=== PATIENT | female | born 1965 | race Caucasian/White ===

== ENCOUNTER 2022-05-11 16:15 | Inpatient (IN) | payer MEDICAID, SELFPAY ==
[2022-05-11] VITALS (21 sets, daily range): BP systolic 126–184; BP diastolic 89–124; PULSE 120–154; RESP 16–32; TEMP 36.8–36.9; O2SAT 85–96; BMI 26.2
--- NOTE | 2022-05-11 16:29 | ECG_ITS ---
[facility] Test Date: 2022-05-11 Pat Name: Alonzo Goncalves Department: Room: Gender: Female Logistics Supervisor: : 1965 Requested By: Anam Bhatti Order Number: [id number] Micah MD: Mikey Rashid M.D. Measurements Intervals [place] Rate: 153 P: 32 [place]: 119 QRS: 24 QRSD: 102 T: 64 QT: 279 QTc: 446 Interpretive Statements SINUS TACHYCARDIA WITH SHORT [place] INTERVAL, POSSIBLE ATRIAL FLUTTER LEFT VENTRICULAR HYPERTROPHY AND ST-T CHANGE [VOLTAGE CRITERIA PLUS ST/T ABNORMALITY No previous ECG available for comparison Electronically Signed On 05-11-2022 18:30:04 CDT by Mikey Rashid M.D. [id number]
--- NOTE | 2022-05-11 16:37 | XRR_ITS ---
PROCEDURE INFORMATION: Exam: XR Chest Exam date and time: 05/11/2022 4:40 PM Age: 56 years old Clinical indication: Cough and dyspnea; Additional info: Dyspnea/cough TECHNIQUE: Imaging protocol: XR of the chest. Views: 1 view. COMPARISON: No relevant prior studies available. FINDINGS: Lungs: Right middle lobe and right lower lobe compressive atelectasis, underlying pneumonia cannot be ruled out. Pleural spaces: Moderate right and small left pleural effusion. Heart/Mediastinum: Cardiac silhouette is markedly enlarged. Mediastinal contours are unremarkable. Vasculature: Vascular calcifications in the aorta. Bones/joints: Unremarkable for age. XR/XR chest 1V portable [id number] IMPRESSION: 1. Right middle lobe and right lower lobe compressive atelectasis, underlying pneumonia cannot be ruled out. Recommend followup chest x-ray to ensure resolution. 2. Moderate right and small left pleural effusion. 3. Cardiac silhouette is markedly enlarged. 4. Incidental/nonacute findings are listed in the report.
--- NOTE | 2022-05-11 16:44 | CTR_ITS ---
PROCEDURE INFORMATION: Exam: CTA Chest With Contrast Exam date and time: 05/11/2022 5:06 PM Age: 56 years old Clinical indication: Shortness of breath and other: Leg swelling; Additional info: Dyspnea/tachycardia TECHNIQUE: Imaging protocol: Computed tomographic angiography of the chest with contrast. Sagittal and coronal reformatted images were created and reviewed. 3D rendering (Not supervised by radiologist): MIP and/or 3D reconstructed images were created by the technologist. Radiation optimization: All CT scans at this facility use at least one of these dose optimization techniques: automated exposure control; mA and/or kV adjustment per patient size (includes targeted exams where dose is matched to clinical indication); or iterative reconstruction. Contrast material: OMNI 300; Contrast volume: 75 ml; Contrast route: INTRAVENOUS (IV); COMPARISON: CR (CHEST, ) 05/11/2022 4:40 PM RADIATION DOSE METRICS: Total DLP (mGy-cm): 579.02 FINDINGS: Pulmonary arteries: No filling defects in the pulmonary arteries to suggest pulmonary embolism. Aorta: Mild atherosclerotic changes in the visualized arteries. No evidence for aortic aneurysm. Evaluation for aortic dissection is limited due to the phase of contrast-enhancement. Trachea: Tracheobronchial structures are patent. Lungs: Right middle lobe and right lower lobe compressive atelectasis, underlying pneumonia cannot be ruled out. Pleural spaces: Large right and small left pleural effusions. No pneumothorax. Heart: Marked enlargement of the heart. Mild atherosclerotic calcification in the coronary arteries. Esophagus: The esophagus is unremarkable. Mediastinal space: No mediastinal hematoma. No pneumomediastinum. Lymph nodes: No lymphadenopathy. Liver: The visualized liver is unremarkable. Pancreas: The visualized pancreas is unremarkable. No pancreatic ductal dilatation. Spleen: The visualized spleen is unremarkable. Adrenal glands: The right adrenal gland is unremarkable. The left adrenal gland is unremarkable. Kidneys and ureters: The visualized right and left kidneys are unremarkable. Bones/joints: Mild degenerative changes in the visualized spine. Soft tissues: No acute abnormality in the extrathoracic soft tissues. CT/CT angio chest PE protcl [id number] IMPRESSION: 1. Large right and small left pleural effusions. Right middle lobe and right lower lobe compressive atelectasis, underlying pneumonia cannot be ruled out. Recommend followup chest imaging to insure resolution of these findings. 2. No evidence for pulmonary embolism. 3. Severe cardiomegaly. 4. Incidental/nonacute findings are listed in the report.
--- NOTE | 2022-05-11 16:46 | USR_ITS ---
PROCEDURE INFORMATION: Exam: US Duplex Right Lower Extremity Veins, Limited Exam date and time: 05/11/2022 5:32 PM Age: 56 years old Clinical indication: Edema, localized; Lower extremity, right; Additional info: Leg edema TECHNIQUE: Imaging protocol: Real-time Duplex ultrasound of the Right Lower Extremity with 2-D robert scale, color Doppler flow and spectral waveform analysis with image documentation. Limited exam was focused on the right lower extremity veins. COMPARISON: No relevant prior studies available. FINDINGS: Right deep veins: Unremarkable. The common femoral, femoral, proximal profunda femoral, popliteal, peroneal, and posterior tibial veins are patent without thrombus. Normal Doppler waveforms. Normal compressibility and/or augmentation response. Right superficial veins: Unremarkable. Saphenofemoral junction is patent without thrombus. Soft tissues: Moderate subcutaneous edema in the right calf. US/[place] [id number] IMPRESSION: 1. No evidence for deep venous thrombosis. 2. Moderate subcutaneous edema in the right calf.
[2022-05-11 16:53] LABS: Basophils # 0.1 10^3/uL (0.0-0.1); Basophils % 0.8 %; Eosinophils # 0.1 10^3/uL (0.0-0.8); Eosinophils % 1.1 %; Hematocrit 43.1 % (37.0-47.0); Hemoglobin 15.2 g/dL (11.5-15.3); Lymphocytes # 3.2 10^3/uL (0.8-4.8); Lymphocytes % 38.5 %; Mean Corpuscular HGB Conc 35.3 g/dL (30.0-36.0); Mean Corpuscular Hemoglobin 35.3 pg (28.0-34.0); Mean Corpuscular Volume 100.2 fl (81-99); Mean Platelet Volume 10.5 fL (7.4-10.4); Monocytes # 0.7 10^3/uL (0.2-0.9); Monocytes % 8.5 %; Neutrophils # 4.29 10^3/uL (1.8-7.7); Nucleated Red Blood Cells % 0.2 %; Platelet Count 237 10^3/cmm (130-400); Red Cell Distribution Width 14.3 % (12.1-15.1); White Blood Count 8.4 10^3/uL (4.0-10.0)
[2022-05-11] MEDS: sodium chloride 0.9% 1,000 ML 999 ML IV (16:55)
[2022-05-11] MEDS: iohexol 300 mg/mL 100 mL Btl IV (17:07)
--- NOTE | 2022-05-11 17:15 | ED_ITS ---
HPI - SOB/Dyspnea General: Chief Complaint: Shortness of Breath/Dyspnea Stated Complaint: SOB, leg swelling Time Seen by Provider: 05/11/22 16:36 Source: patient Mode of arrival: ambulatory Limitations: no limitations History of Present Illness: HPI Narrative: 56-year-old female presents emergency room complaining of swelling in her legs and shortness of breath. Earlier this year she had COVID. She still feels like 7 difficult time getting over she has not had any chest pain. No fever sweats chills nausea vomiting or diarrhea. MD elicited complaint: shortness of breath and cough Onset (ago): week(s) Timing: constant Severity: severe Exacerbating factors: lying flat, exertion and coughing Relieving factors: oxygen, rest and upright position Associated symptoms: Reports chest congestion and cough; Deny abdominal pain, chest pain, diaphoresis, dizziness, extremity pain, fever(s), hemoptysis, lightheadedness, myalgias, nausea, orthopnea, palpitations, paresthesias, polydipsia, polyuria, rash, sense of impending doom, syncope or vomiting Treatment prior to arrival: oxygen Review of Systems Const: Denies: fever(s), chills or diaphoresis ENMT: Denies: throat pain, ear or mastoid pain, nasal discharge or nasal congestion Card: Denies: chest pain, palpitations, lightheadedness, syncope or orthopnea Resp: Reports: chest congestion; Denies: dyspnea, productive cough, non-productive cough or hemoptysis GI: Denies: abdominal pain, nausea or vomiting : Denies: flank pain, difficulty voiding, dysuria or urinary frequency Musc: Denies: neck pain, back pain or extremity pain Skin/Breast: Denies: rash or pruritus Neuro: Denies: dizziness Endo: Denies: polyuria or polydipsia PFSH ED PFSH: Medical History History of hypertension No significant past medical history Surgical History History of right knee surgery No significant past surgical history Family History Mother Lymphoma Father Hypertension Lung cancer Physical Exam Const: GENERAL APPEARANCE: cooperative and comfortable ORIENTATION/CONSCIOUSNESS: Yes awake, Yes oriented to person, Yes oriented to place and Yes oriented to time HENMT: COMMON NORMALS: normocephalic, atraumatic and hearing grossly normal bilaterally HEAD & SCALP: normocephalic and atraumatic Resp: AUSCULTATION: rales and diminished lung sounds Cardio: COMMON NORMALS: regular rate, regular rhythm and No murmurs present (Cardio) RATE: regular rate RHYTHM: regular rhythm GI: COMMON NORMALS: Soft to palpation and No hepatosplenomegaly present AUSCULTATION: Yes normoactive bowel sounds PALPATION: Yes Soft to palpation, No Tenderness to palpation present (GI), No Guarding due to palpation present (GI) and Yes No hepatosplenomegaly present : COMMON NORMALS: Yes no CVA tenderness BLADDER/KIDNEY EXAM: Yes no CVA tenderness Back/Pelvis: COMMON NORMALS: no CVA tenderness Extremity: COMMON NORMALS: normal to inspection, capillary refill normal, no clubbing, cyanosis or edema, no calf tenderness and no pedal edema Neuro: SENSORIUM/ORIENTATION: Yes oriented to person, Yes oriented to place and Yes oriented to time Skin: COMMON NORMALS: no rashes or lesions noted GENERAL SKIN EXAM: no rashes or lesions noted Course 2 Vital Signs: Vital signs: Vital Signs Temperature 97.9 F 05/15/22 12:00 Pulse Rate 100 05/15/22 15:15 Respiratory Rate 32 H 05/15/22 15:49 Blood Pressure 90/71 05/15/22 15:49 Pulse Oximetry 97 05/15/22 15:15 MDM - SOB/Dyspnea Medical Decision Making Acute respiratory failure with a pleural effusion on the right and some heart failure as well as significant cardiomegaly. Discussed with hospitalist and with superintendent automotive will admit. Lab Data : 05/15/22 04:03 05/15/22 04:03 Labs/Radiology: Radiology Impressions Chest CTA 05/11/22 16:44 IMPRESSION: 1. Large right and small left pleural effusions. Right middle lobe and right lower lobe compressive atelectasis, underlying pneumonia cannot be ruled out. Recommend followup chest imaging to insure resolution of these findings. 2. No evidence for pulmonary embolism. 3. Severe cardiomegaly. 4. Incidental/nonacute findings are listed in the report. ADDENDUM: 05/11/22 1727 Urgent results were discussed with ANAM Lee on 05/11/2022 at 5:25 PM CDT. Venous Duplex 05/11/22 16:46 IMPRESSION: 1. No evidence for deep venous thrombosis. 2. Moderate subcutaneous edema in the right calf. Chest X-Ray 05/13/22 08:13 Impression: 1. No change in right basilar opacity which may represent atelectasis and/or pneumonia. 2. No change in cardiomegaly, atherosclerosis and small bilateral effusions. Liver Ultrasound 05/13/22 08:16 IMPRESSION: 1. Very mildly dilated common bile duct 1.0 cm. No stones identified or intrahepatic duct dilatation. Consider follow-up CT abdomen and pelvis with IV and oral contrast or MRCP. 2. Hepatic steatosis with early changes of cirrhosis suspected. 3. Pancreas poorly visualized. 4. No gallstones. Laboratory Results WBC 8.4 10^3/uL (4.0-10.0) 05/11/22 16:40 RBC 4.30 10^6/uL (4.1-5.3) 05/11/22 16:40 Hgb 15.2 g/dL (11.5-15.3) 05/11/22 16:40 Hct 43.1 % (37.0-47.0) 05/11/22 16:40 MCV 100.2 fl (81-99) H 05/11/22 16:40 MCH 35.3 pg (28.0-34.0) H 05/11/22 16:40 MCHC 35.3 g/dL (30.0-36.0) 05/11/22 16:40 RDW 14.3 % (12.1-15.1) 05/11/22 16:40 Plt Count 237 10^3/cmm (130-400) 05/11/22 16:40 MPV 10.5 fL (7.4-10.4) H 05/11/22 16:40 Neut % (Auto) 51.0 % 05/11/22 16:40 Lymph % (Auto) 38.5 % 05/11/22 16:40 [place] % (Auto) 8.5 % 05/11/22 16:40 Eos % (Auto) 1.1 % 05/11/22 16:40 Baso % (Auto) 0.8 % 05/11/22 16:40 Neut # (Auto) 4.29 10^3/uL (1.8-7.7) 05/11/22 16:40 Lymph # (Auto) 3.2 10^3/uL (0.8-4.8) 05/11/22 16:40 [place] # (Auto) 0.7 10^3/uL (0.2-0.9) 05/11/22 16:40 Eos # (Auto) 0.1 10^3/uL (0.0-0.8) 05/11/22 16:40 Baso # (Auto) 0.1 10^3/uL (0.0-0.1) 05/11/22 16:40 Nucleated RBC % (auto) 0.2 % 05/11/22 16:40 Nucleated RBCs # 0.0 /100WBC 05/11/22 16:40 Differential Comment Yes 05/11/22 18:50 ESR 34 mm/hr (0-15) H 05/11/22 16:40 PT 14.90 SECONDS (12.1-14.9) 05/11/22 16:40 INR 1.14 (0.8-1.2) 05/11/22 16:40 APTT 31.1 SECONDS (23.9-36.7) 05/11/22 16:40 Sodium 139 mmol/L (136-145) 05/11/22 16:40 Potassium 3.9 mmol/L (3.5-5.1) 05/11/22 16:40 Chloride 100 mmol/L (98-107) 05/11/22 16:40 Carbon Dioxide 21 mmol/L (22-29) L 05/11/22 16:40 Anion Gap 21.9 (5-19) H 05/11/22 16:40 BUN 6 mg/dL (6-20) 05/11/22 16:40 Creatinine 0.6 mg/dL (0.5-0.9) 05/11/22 16:40 GFR Calculation 103.0 mL/min (90-130) 05/11/22 16:40 Glucose 148 mg/dL (65-115) H 05/11/22 16:40 Estimat Average Glucose 105 05/11/22 16:40 Hemoglobin A1c 5.3 % (4.0-6.0) 05/11/22 16:40 Calculated Osmolality 288 mOsm/kg (285-295) 05/11/22 16:40 Lactate 3.4 mmol/L (0.5-2.2) H 05/11/22 16:40 Calcium 8.1 mg/dL (8.5-10.5) L 05/11/22 16:40 Phosphorus 3.6 mg/dL (2.5-4.5) 05/11/22 16:40 Magnesium 1.3 mg/dL (1.7-2.3) L 05/11/22 16:40 Ferritin 286 ng/mL (15-150) H 05/11/22 16:40 Total Bilirubin 0.8 mg/dL (0.15-1.2) 05/11/22 16:40 GGT 584 U/L (5-36) H 05/11/22 18:48 AST 61 U/L (0-32) H 05/11/22 16:40 ALT 35 U/L (0-33) H 05/11/22 16:40 Alkaline Phosphatase 131 IU/L (35-105) H 05/11/22 16:40 Creatine Kinase 245 U/L (26-192) H 05/11/22 16:40 CK-MB (CK-2) 7.1 ng/mL (0-5.34) H 05/11/22 16:40 Troponin T Baseline 37 ng/L (0-10) H 05/11/22 16:40 Troponin T 120 Minute 35.99 ng/L (0-10) H 05/11/22 18:48 Delta Troponin T -1.01 ABS# (0-10) L 05/11/22 18:48 C-Reactive Protein 4.5 mg/L (0.0-4.9) 05/11/22 16:40 NT-Pro-B Natriuret Pep 1967 pg/mL (0-125) H 05/11/22 16:40 Total Protein 7.0 g/dL (6.6-8.7) 05/11/22 16:40 Albumin 3.1 g/dL (3.5-5.2) L 05/11/22 16:40 Globulin 3.9 g/dL (1.3-4.6) 05/11/22 16:40 Vitamin B12 873 pg/mL (232-1245) 05/11/22 16:40 Folate 5.2 ng/mL (4.8-37.3) 05/11/22 16:40 Procalcitonin 0.03 ng/mL (0-0.5) 05/11/22 16:40 TSH 3.98 uIU/mL (0.27-4.20) 05/11/22 16:40 Thyroxine (T4) 4.8 mcg/dL (5.1-11.9) L 05/11/22 16:40 Free T3 2.8 PG/ML (2.0-4.4) 05/11/22 16:40 Fluid Color Pale yellow 05/11/22 18:50 Fluid Appearance Clear 05/11/22 18:50 Fluid Specific Grav 1.020 05/11/22 18:50 Fluid pH 6.5 05/11/22 18:50 Fluid WBC 467 /uL 05/11/22 18:50 Fluid RBC 1.000 10^3/uL 05/11/22 18:50 Fluid Hematocrit 0.0 % 05/11/22 18:50 Fld Polynuclear WBCs # 0.044 05/11/22 18:50 Fld Polynuclear WBCs % 9.400 % 05/11/22 18:50 Fl Mononucl WBCs #(Auto) 0.423 05/11/22 18:50 Fl Mononuclear % Auto 90.600 % 05/11/22 18:50 Fluid Glucose 117.0 mg/dL 05/11/22 18:50 Fluid Albumin 0.6 g/dL 05/11/22 18:50 Fluid LDH 101 U/L 05/11/22 18:50 Fluid Amylase 23 U/L 05/11/22 18:50 Fluid Creatinine 0.47 (0.5-0.9) L 05/11/22 18:50 Fluid Alk Phosphatase 15 IU/L 05/11/22 18:50 Fluid Cholesterol 24 mg/dL (0-200) 05/11/22 18:50 Fluid Triglycerides 22 mg/dL (0-150) 05/11/22 18:50 Fluid Uric Acid 9 mg/dL 05/11/22 18:50 Pleural Total Protein 1.3 g/dL 05/11/22 18:50 Ethyl Alcohol 222 mg/dL (0-10) H 05/11/22 16:40 LOBITO IFA Animal Tis Res Negative (NEGATIVE) 05/11/22 16:40 BOB-1 Antibody <1.0 neg AI (<1.0 NEG) 05/11/22 16:40 SS-A Antibody <1.0 neg AI (<1.0 NEG) 05/11/22 16:40 SS-B Antibody <1.0 neg AI (<1.0 NEG) 05/11/22 16:40 Sm (Carrizales) Antibody <1.0 neg AI (<1.0 NEG) 05/11/22 16:40 PRE[employer]INCT [employer] Antibody <1.0 neg AI (<1.0 NEG) 05/11/22 16:40 Scl-70 Antibody <1.0 neg AI (<1.0 NEG) 05/11/22 16:40 Anti-ds DNA IgG (Crith) Negative (NEGATIVE) 05/11/22 16:40 Centromere B Antibody <1.0 neg AI (<1.0 NEG) 05/11/22 16:40 Thyroid Peroxidase Ab 1 IU/mL (<9) 05/11/22 16:40 Complement C3c 128 mg/dL (83-193) 05/11/22 16:40 Complement C4c 26 mg/dL (15-57) 05/11/22 16:40 CH50 Classical Pathway 51 U/mL (31-60) 05/11/22 16:40 Discharge Plan Discharge Patient Disposition: Admitted As Inpatient Admit Provider: Rony Monique Clinical Impression: Acute hypoxemic respiratory failure, Cardiomegaly, Pleural effusion on right Condition: Stable Discharge Orders: Discharge Order (Routine); Ordered 05/15/22 Ordered By: Rony Monique Discharge Diet: Cardiac Discharge Activity: Resume usual activity Coding Level of Care Code ED Client Relationship Consultant for Chg Fwd Exam Comprehensive
[2022-05-11 17:28] LABS: INR 1.14 (0.8-1.2); Partial Thromboplastin Time 31.1 SECONDS (23.9-36.7)
[2022-05-11 17:38] LABS: Troponin(5th) Baseline 37 ng/L (0-10)
[2022-05-11 17:46] LABS: Alanine Aminotransferase 35 U/L (0-33); Albumin Level 3.1 g/dL (3.5-5.2); Alkaline Phosphatase 131 IU/L (35-105); Anion Gap 21.9 (5-19); Aspartate Amino Transferase 61 U/L (0-32); Blood Urea Nitrogen 6 mg/dL (6-20); Calcium 8.1 mg/dL (8.5-10.5); Carbon Dioxide 21 mmol/L (22-29); Chloride 100 mmol/L (98-107); Creatine Phosphokinase 245 U/L (26-192); Creatinine Clr Calc Pharmacy 98.8739; Globulin 3.9 g/dL (1.3-4.6); Glucose 148 mg/dL (65-115); NT Pro B Type Natriuretic Pept 1967 pg/mL (0-125); Osmolality Calculated 288 mOsm/kg (285-295); Potassium 3.9 mmol/L (3.5-5.1); Sodium 139 mmol/L (136-145); Thyroid Stimulating Hormone 3.98 uIU/mL (0.27-4.20); Total Bilirubin 0.8 mg/dL (0.15-1.2)
--- NOTE | 2022-05-11 18:22 | P.HP_ITS ---
Providers/Chief Complaint Chief Complaint: SOB, leg swelling History of Present Illness Alonzo Goncalves is a 56 year old female with a past medical history of hypertension, not taking any home medications, has not seen a physician in some time who presents [facility] due to shortness of breath and bilateral lower extreme edema. Patient tells me for the last month she has not been feeling well, she had COVID, and since then she has not really recovered. She tells me that she progressively developed worsening shortness of breath, shortness of breath with exertion, with worsening bilateral lower extremity edema. No history of DVT. No history of PE. No history of rheumatologic abnormality. No history of chest pain. No cardiovascular history. No significant family history of CAD. She does not have history of CAD. Does smoke. Denies history of diabetes. Does have a history of hypertension, has not been taking medications. She did not have insurance. She does report history of drug use, but this is over 10 years ago. Does admit to drinking 2 glasses of alcohol daily, she tells me that the type alcohol could very be 2 beers to hard liquor to wine. She denies a history of alcohol withdrawal. Denies a history of cancers Review of Systems Const: Denies: fever(s), chills, fatigue or malaise Eyes: Denies: change in vision Card: Reports: edema, swelling of feet/ankles and dyspnea on exertion; Denies: chest pain, palpitations, lightheadedness or syncope Resp: Denies: productive cough GI: Denies: abdominal pain, nausea or vomiting : Denies: dysuria Musc: Denies: back pain Skin/Breast: Denies: rash Neuro: Denies: headache(s) or dizziness Endo: Denies: polyuria or polydipsia Medications/Allergies Home Medications Medication Instructions Recorded Confirmed Last Taken Type No Known Home Medications 05/11/22 05/11/22 Unknown History Allergies Allergy/AdvReac Type Severity Reaction Status Date / Time No Known Allergies Allergy Verified 05/11/22 16:35 PFSH Acute PFSH: Medical History History of hypertension No significant past medical history Surgical History History of right knee surgery No significant past surgical history Family History (Updated 05/11/22 @ 18:26 by Rony Monique MD) Mother Lymphoma Father Hypertension Lung cancer Vitals/I&O/Wt Last Vital Signs Temp 98.4 F 05/11/22 16:29 Pulse 136 H 05/11/22 17:50 Resp 28 H 05/11/22 17:50 BP 134/94 05/11/22 17:50 Pulse Ox 91 05/11/22 17:50 Weight last 48 hrs Weight 69.309 kg Physical Exam Const: COMMON NORMALS: no acute distress and patient oriented x3 HENMT: COMMON NORMALS: normocephalic HEAD & SCALP: normocephalic Neck/C-Spine: COMMON NORMALS: no JVD Resp: COMMON NORMALS: normal respiratory effort, No retractions, No use of accessory muscles and clear to auscultation bilaterally OTHER: Decreased aeration, right lower lung field Cardio: COMMON NORMALS: no JVD, regular rate, regular rhythm, S1 normal heart sound present and S2 normal heart sound present RATE: regular rate RHYTHM: regular rhythm HEART SOUNDS: S1 normal heart sound present and S2 normal heart sound present GI: COMMON NORMALS: Normal to inspection, nondistended, normoactive bowel sounds present, Soft to palpation, non-tender, No hepatosplenomegaly present, no masses and no bruits PALPATION: Yes Soft to palpation and Yes No hepatosplenomegaly present Extremity: COMMON NORMALS: capillary refill normal, no clubbing, cyanosis or edema and no calf tenderness NARRATIVE EXTREMITY EXAM: 2+ pitting edema bilaterally Neuro: COMMON NORMALS: patient oriented x3, CN's II-XII intact bilaterally, moves all extremities and no focal motor deficits Psych: COMMON NORMALS: mental status grossly normal Data : 05/11/22 16:40 05/11/22 16:40 A&P Assessment and plan (1) Acute respiratory failure: Status: Acute (2) Pleural effusion, right: Status: Acute (3) Congestive heart failure: Status: Acute (4) Cardiomegaly: Status: Acute (5) Sinus tachycardia: Status: Acute Plan Acute hypoxic respiratory failure -Etiology likely multifactorial -Requiring 1 L, tachycardic heart rates in 130s, sinus -Has a large right pleural effusion -Has cardiomegaly on exam, bilateral extremity edema, elevated BNP -Does have transaminitis Plan -Do a rheumatologic work-up, TSH, blood cultures -Cardiac echo -ESR, CRP, Pro-Mihai - Datar consulted, will do a right thoracocentesis -Lasix 40 mg IV daily -CT angiogram no pulmonary emboli -Monitor respiratory status -Monitor urine output -Mag, Phos, monitor creatinine -Troponin series, serial EKGs, monitor telemetry -Full code -Lovenox for DVT prophylaxis Attestations Medical Necessity Statement*: Patient requires hospitalization for acute respiratory failure, inpatient, greater than 2 minutes Coding Level of Care Code Acute Rn Imaging for [facility] Fwd Diagnoses Acute respiratory failure J96.00 Pleural effusion, right J90 Congestive heart failure I50.9 Cardiomegaly I51.7 Sinus tachycardia R00.0
--- NOTE | 2022-05-11 18:37 | ECG_ITS ---
[facility] Test Date: 2022-05-11 Pat Name: Alonzo Goncalves Department: Room: [facility] Gender: Female Javascript Front End Developer: : 1965 Requested By: Anam Bhatti Order Number: [id number] Micah MD: Migdalia Scales M.D. Measurements Intervals [place] Rate: 129 P: 50 MI: 138 QRS: 4 QRSD: 109 T: 115 QT: 319 QTc: 468 Interpretive Statements SINUS TACHYCARDIA LEFT VENTRICULAR HYPERTROPHY AND ST-T CHANGE [VOLTAGE CRITERIA PLUS ST/T ABNORMALITY] Compared to ECG 05/11/2022 16:40:26 No significant changes Electronically Signed On 05-12-2022 22:27:02 CDT by Migdalia Scales M.D. [id number]
[2022-05-11 18:38] LABS: Erythrocyte Sedimentation Rate 34 mm/hr (0-15)
--- NOTE | 2022-05-11 18:55 | PC.NURSE ---
Patient had a right side thoracentesis completed, Doctor slightly over 1L of fluid for patient. Patient tolerated well. Patient no longer on [place] O2.
[2022-05-11 18:56] LABS: Alcohol Level 222 mg/dL (0-10); C Reactive Protein 4.5 mg/L (0.0-4.9); Magnesium 1.3 mg/dL (1.7-2.3); Phosphorus 3.6 mg/dL (2.5-4.5)
[2022-05-11 19:03] LABS: Procalcitonin 0.03 ng/mL (0-0.5); T3 Free 2.8 PG/ML (2.0-4.4)
--- NOTE | 2022-05-11 19:05 | P.CONIM_ITS ---
Providers/Reason For Consult Consulting Physician/Specialty*: Wei Gallagher MD/Pulmonary Critical Care Reason for Consult*: Right pleural effusion Requesting Physician: Anam Shepherd MD Attending Physician: Rony Monique MD History of Present Illness History of Present Illness Alonzo Goncalves is a 56 year old female with history of hypertension-noncompliant with medications, chronic smoker 1 pack/day for > 40 years, chronic alcoholic 2 drinks per day, remote history of drug use more than 10 years ago-came to emergency room with shortness of breath and leg swelling. Reported luly COVID more than a month ago and since then she has not been feeling well with progressive worsening shortness of breath and leg swelling. While in the emergency room as patient presented with tachycardia, shortness of breath-PE suspected and she underwent CT angiogram which ruled out PE but reported large right pleural effusion and small left pleural effusion. Severe cardiomegaly. Pulmonary was consulted by ED physician to help with thoracentesis. patient reported difficulty breathing but denied any chest pain. She has noticed that her legs are getting swollen for the last 3 to 4 weeks. shas not seen any doctor for more than 5 years. Previously diagnosed with high blood pressure but is not taking her medications. Continues to smoke 1 pack/day and recently cut down to half pack per day. Never had any testing done for COPD or CAD. Reported father having thyroid problems and her thyroid tests were normal several years ago. Drinks 2 glasses of alcohol-hard liquor or wine some days every day. Also reported having cough for last 1 month with some sputum but did not notice any color change. Also reported having hair loss. Denies any headaches, blurry vision, fevers, nausea, vomiting, diarrhea, constipation, exertional chest pain, orthopnea, PND, dizziness, rash, joint pains, urinary problems, cannot say heat or cold intolerance Patient is tachycardic with heart rate ranging from 1 35-1 45-in sinus rhythm Saturating 95% on room air I reviewed CTA and it showed moderate right pleural effusion with no mediastinal shift Medications/Allergies Home Medications Medication Instructions Recorded Confirmed Last Taken Type No Known Home Medications 05/11/22 05/11/22 Unknown History Allergies Allergy/AdvReac Type Severity Reaction Status Date / Time No Known Allergies Allergy Verified 05/11/22 16:35 PFSH Acute PFSH: Medical History History of hypertension No significant past medical history Surgical History History of right knee surgery No significant past surgical history Family History Mother Lymphoma Father Hypertension Lung cancer Vitals/I&O/Wt Last Vital Signs Temp 98.4 F 05/11/22 16:29 Pulse 136 H 05/11/22 17:50 Resp 28 H 05/11/22 17:50 BP 134/94 05/11/22 17:50 Pulse Ox 91 05/11/22 17:50 Weight last 48 hrs Weight 152 lb 12.8 oz Physical Exam Narrative: General: alert, NAD HEENT: conj clear, EOMI, PERRL, mmm, slight exophthalmos with dilated pupils Neck: supple, no meningismus Heme: no cervical LAP Pulmonary: CTAB, no wheezing, rhonchi, crackles Cardiovascular: Increased rate, regular rhythm, S1, S2, Abdomen: soft, nt, nd, no r/g, bs+ Extremities: pulses +, 1+ pitting pedal edema, no c/c : no CVA tenderness Skin: intact, no rash MSK: no back or neck pain Neurologic: grossly intact Data : 05/11/22 16:40 05/11/22 16:40 Other Labs: Radiology Impressions Chest X-Ray 05/11/22 16:37 IMPRESSION: 1. Right middle lobe and right lower lobe compressive atelectasis, underlying pneumonia cannot be ruled out. Recommend followup chest x-ray to ensure resolution. 2. Moderate right and small left pleural effusion. 3. Cardiac silhouette is markedly enlarged. 4. Incidental/nonacute findings are listed in the report. ADDENDUM: 05/11/22 1710 Urgent results were discussed with ANAM Lee on 05/11/2022 at 5:09 PM CDT. Chest CTA 05/11/22 16:44 IMPRESSION: 1. Large right and small left pleural effusions. Right middle lobe and right lower lobe compressive atelectasis, underlying pneumonia cannot be ruled out. Recommend followup chest imaging to insure resolution of these findings. 2. No evidence for pulmonary embolism. 3. Severe cardiomegaly. 4. Incidental/nonacute findings are listed in the report. ADDENDUM: 05/11/22 1727 Urgent results were discussed with ANAM Lee on 05/11/2022 at 5:25 PM CDT. Venous Duplex 05/11/22 16:46 IMPRESSION: 1. No evidence for deep venous thrombosis. 2. Moderate subcutaneous edema in the right calf. Laboratory Results WBC 8.4 10^3/uL (4.0-10.0) 05/11/22 16:40 RBC 4.30 10^6/uL (4.1-5.3) 05/11/22 16:40 Hgb 15.2 g/dL (11.5-15.3) 05/11/22 16:40 Hct 43.1 % (37.0-47.0) 05/11/22 16:40 MCV 100.2 fl (81-99) H 05/11/22 16:40 MCH 35.3 pg (28.0-34.0) H 05/11/22 16:40 MCHC 35.3 g/dL (30.0-36.0) 05/11/22 16:40 RDW 14.3 % (12.1-15.1) 05/11/22 16:40 Plt Count 237 10^3/cmm (130-400) 05/11/22 16:40 MPV 10.5 fL (7.4-10.4) H 05/11/22 16:40 Neut % (Auto) 51.0 % 05/11/22 16:40 Lymph % (Auto) 38.5 % 05/11/22 16:40 [place] % (Auto) 8.5 % 05/11/22 16:40 Eos % (Auto) 1.1 % 05/11/22 16:40 Baso % (Auto) 0.8 % 05/11/22 16:40 Neut # (Auto) 4.29 10^3/uL (1.8-7.7) 05/11/22 16:40 Lymph # (Auto) 3.2 10^3/uL (0.8-4.8) 05/11/22 16:40 [place] # (Auto) 0.7 10^3/uL (0.2-0.9) 05/11/22 16:40 Eos # (Auto) 0.1 10^3/uL (0.0-0.8) 05/11/22 16:40 Baso # (Auto) 0.1 10^3/uL (0.0-0.1) 05/11/22 16:40 Nucleated RBC % (auto) 0.2 % 05/11/22 16:40 Nucleated RBCs # 0.0 /100WBC 05/11/22 16:40 ESR 34 mm/hr (0-15) H 05/11/22 16:40 PT 14.90 SECONDS (12.1-14.9) 05/11/22 16:40 INR 1.14 (0.8-1.2) 05/11/22 16:40 APTT 31.1 SECONDS (23.9-36.7) 05/11/22 16:40 Sodium 139 mmol/L (136-145) 05/11/22 16:40 Potassium 3.9 mmol/L (3.5-5.1) 05/11/22 16:40 Chloride 100 mmol/L (98-107) 05/11/22 16:40 Carbon Dioxide 21 mmol/L (22-29) L 05/11/22 16:40 Anion Gap 21.9 (5-19) H 05/11/22 16:40 BUN 6 mg/dL (6-20) 05/11/22 16:40 Creatinine 0.6 mg/dL (0.5-0.9) 05/11/22 16:40 GFR Calculation 103.0 mL/min (90-130) 05/11/22 16:40 Glucose 148 mg/dL (65-115) H 05/11/22 16:40 Calculated Osmolality 288 mOsm/kg (285-295) 05/11/22 16:40 Calcium 8.1 mg/dL (8.5-10.5) L 05/11/22 16:40 Phosphorus 3.6 mg/dL (2.5-4.5) 05/11/22 16:40 Magnesium 1.3 mg/dL (1.7-2.3) L 05/11/22 16:40 Total Bilirubin 0.8 mg/dL (0.15-1.2) 05/11/22 16:40 AST 61 U/L (0-32) H 05/11/22 16:40 ALT 35 U/L (0-33) H 05/11/22 16:40 Alkaline Phosphatase 131 IU/L (35-105) H 05/11/22 16:40 Creatine Kinase 245 U/L (26-192) H 05/11/22 16:40 CK-MB (CK-2) 7.1 ng/mL (0-5.34) H 05/11/22 16:40 Troponin T Baseline 37 ng/L (0-10) H 05/11/22 16:40 Troponin T 120 Minute 35.99 ng/L (0-10) H 05/11/22 18:48 Delta Troponin T -1.01 ABS# (0-10) L 05/11/22 18:48 C-Reactive Protein 4.5 mg/L (0.0-4.9) 05/11/22 16:40 NT-Pro-B Natriuret Pep 1967 pg/mL (0-125) H 05/11/22 16:40 Total Protein 7.0 g/dL (6.6-8.7) 05/11/22 16:40 Albumin 3.1 g/dL (3.5-5.2) L 05/11/22 16:40 Globulin 3.9 g/dL (1.3-4.6) 05/11/22 16:40 Vitamin B12 873 pg/mL (232-1245) 05/11/22 16:40 Folate 5.2 ng/mL (4.8-37.3) 05/11/22 16:40 Procalcitonin 0.03 ng/mL (0-0.5) 05/11/22 16:40 TSH 3.98 uIU/mL (0.27-4.20) 05/11/22 16:40 Free T3 2.8 PG/ML (2.0-4.4) 05/11/22 16:40 Ethyl Alcohol 222 mg/dL (0-10) H 05/11/22 16:40 Micro: Microbiology 05/11/22 18:48 Blood Culture - Preliminary Blood SPECIMEN COLLECTED 05/11/22 18:48 Blood Culture - Preliminary Blood SPECIMEN COLLECTED A&P Assessment and plan (1) Pleural effusion, right: Status: Acute (2) Hypertension: Status: Acute (3) Sinus tachycardia: Status: Acute (4) Cardiomegaly: Status: Acute (5) Congestive heart failure: Status: Acute (6) Alcoholic hepatitis: Status: Acute Plan #Right pleural effusion and severe cardiomegaly and patient with history of hypertension, smoking #1 pack/day for more than 40 years #History of hypertension-not on any meds #Bilateral pitting pedal edema on examination #Severe cardiomegaly on CT chest-suspect CHF-? Alcohol induced/tachycardia induced #Exophthalmos and sinus tachycardia-suspect hyperthyroidism #Deranged LFTs-alcohol Patan AST greater than ALT, alcoholic hepatitis #Hypomagnesemia-secondary to alcohol intake-supplemented #Increased anion gap, bicarb 21 and moderately controlled sugars-suspect diabetes/DKA -I suspect right pleural effusion is secondary to CHF given her cardiomegaly and underlying CAD risk factors -S/p thoracentesis-drained 1000 cc straw-colored fluid and sent for fluid analysis and chemistry, cultures, cytologyto [id number] postprocedure chest x-ray to rule out pneumothorax -BNP 1967,alcohol level 222, Magnesium 1.3 - pending drug screen, thyroid function tests, CV echo-if abnormal patient needs cardiac evaluation for underlying CAD; Lasix 20 Mg daily and monitor input output -Counseled patient about fluid restriction less than 1.5 L/day and salt restriction less than 2 g/day -Recommended cardiac monitoring with serial troponins and EKGs -Increased MCV can be due to alcohol-normal B12 and folate -Multivitamin/thiamine/folate and CIWA protocol for alcohol withdrawal -Corrected anion gap 24 with bicarb 21-chemistry glucose 148-I ordered A1c, ketones, lactic acid-we will place patient on scale coverage -DuoNeb nebulization every 6 hours as needed for shortness of breath/wheezing; patient needs PFTs as outpatient to rule out COPD - findings discussed with ER physician -Recommendations conveyed to hospitalist taking care of the patient Consult Attestations Medical Necessity Statement: Presently being admitted for right pleural effusion secondary to suspected CHF and require cardiac monitoring for sinus tachycardia Time Spent in Patient Care: Greater than 35 minutes (>than 50% of time spent in counselling and/or direct pt care on unit) . Critical Care Time: The high probability of a clinically significant, sudden or life threatening deterioration of the patient's [pulmonary, cardiac, endocrine system(s) required my full and direct attention, intervention and personal management. The critical care time is as shown. This time is in addition to time spent performing any reported procedures but includes the following: [x] Data and vital sign review and interpretation [x] Patient assessment, examination and intervention [x] Documentation [x] Medication orders and management Critical Care Time (min): 60 Coding Level of Care Code New Pt Acute Associate Director Finance for Chg Fwd Patient Type New History Comprehensive Exam Comprehensive Medical Decision Making High Complexity Diagnoses Sinus tachycardia R00.0 Cardiomegaly I51.7 Congestive heart failure I50.9 Pleural effusion, right J90 Hypertension I10 Alcoholic hepatitis K70.10 Time Spent (min) 60
--- NOTE | 2022-05-11 19:05 | PM.ACPR ---
Procedure/Consent Time out: Time Out Performed: Yes Procedure Narrative: Pulmonary & Critical Care Medicine Procedure - Ultrasound guided Thoracentesis Procedure: Ultrasound guided Thoracentesis Indication: Right pleural effusion Premium Service Representative(s): Wei Gallagher MD Consent: Signed and placed in chart Anesthesia: 10 cc 1% lidocaine without epinephrine Description: Chest CT scan reviewed and right pleural effusion was localized using ultrasound guidance and the appropriate site was marked accordingly. A time out was performed. My hands were washed immediately prior to the procedure. I wore a surgical cap, mask with protective eyewear, sterile gown and sterile gloves throughout the procedure. The patient was placed in appropriate position, area of interest was sterilized with chlorhexidine skin prep and draped in a sterile manner. 1% lidocaine was used to anesthesize the skin, subcutaneous tissue, superior aspect of the rib periosteum and parietal pleura. A finder needle was then introduced over the superior aspect of the rib to locate the pleural fluid; 5 cc straw colored fluid was aspirated. A 10-blade scalpel was used to carlito the skin at the insertion site. The Cstb-c-Mqqilxqe needle was then introduced through the skin incision into the pleural space using negative aspiration pressure and the red colormetric indicator to confirm appropriate positioning of the needle. The thoracentesis catheter was then threaded without difficulty. 1000 CC straw colored fluid was removed without difficulty. The catheter was then removed. No immediate complications were noted during the procedure. The fluid will be sent for studies. Estimated blood loss is 5 - 10 CC. Ultrasound guidance used: Yes EBL: 5 cc Complications: None PCXR: A post-procedure chest x-ray did not show pneumothorax. Acute Procedures Epistaxis Control: Time out performed: Yes
[2022-05-11 19:18] LABS: Troponin 5 2HR 35.99 ng/L (0-10)
[2022-05-11 19:19] LABS: Troponin 5 2HR Delta -1.01 ABS# (0-10)
[2022-05-11 19:27] LABS: Vitamin B12 873 pg/mL (232-1245)
[2022-05-11 19:30] LABS: CKMB 7.1 ng/mL (0-5.34); Folate Level 5.2 ng/mL (4.8-37.3)
--- NOTE | 2022-05-11 19:33 | XRR_ITS ---
PROCEDURE INFORMATION: Exam: XR Chest Exam date and time: 05/11/2022 7:52 PM Age: 56 years old Clinical indication: Shortness of breath; Additional info: Post thoracentesis TECHNIQUE: Imaging protocol: XR of the chest. Views: 1 view. COMPARISON: CR (CHEST, ) 05/11/2022 4:40 PM FINDINGS: Lungs: See Pleural spaces finding. Pleural spaces: Small right pleural effusion, decreased in size after a thoracentesis. There is also improving aeration in the right middle and lower lobes suggesting partial resolution of atelectasis and/or pneumonia. No pneumothorax. Heart/Mediastinum: Stable marked enlargement of the cardiac silhouette. Bones/joints: Unremarkable for age. XR/XR chest 1V portable [id number] IMPRESSION: 1. Small right pleural effusion, decreased in size after a thoracentesis. There is also improving aeration in the right middle and lower lobes suggesting partial resolution of atelectasis and/or pneumonia. Follow-up imaging to ensure complete resolution is recommended. 2. No pneumothorax. 3. Incidental/nonacute findings are listed in the report.
[2022-05-11 19:40] LABS: Ferritin 286 ng/mL (15-150)
[2022-05-11 19:41] LABS: LAB Peripheral Smear Sent for Review
[2022-05-11 20:05] LABS: Apprearance, Body Fluid CLEAR; Color, Body Fluid PALE YELLOW; Cyto Order Verification Order Verified; PATH Referral YES
[2022-05-11 20:10] LABS: Body Fluid Polynuclear #Cells 0.044; Body Fluid WBC 467 /uL; Monocytes # Body Fluid 0.423
[2022-05-11 20:16] LABS: pH Body Fluid 6.5
[2022-05-11] MEDS: magnesium sulfate premix 2 GM/50 ML PIGGYBACK IV (20:29)
[2022-05-11] MEDS: pantoprazole 40 mg SDV IVP (20:30)
[2022-05-11] MEDS: FUROsemide 10 mg/mL SDV 4mL 40 MG IVP (20:30)
[2022-05-11 20:45] LABS: Glucose Point of Care 101 mg/dL (70-110)
[2022-05-11 20:46] LABS: Gamma Glutamyl Transferase 584 U/L (5-36)
[2022-05-11 20:58] LABS: Fluid Alkaline Phos. 15 IU/L
[2022-05-11 20:59] LABS: Albumin Body Fluid 0.6 g/dL; Amylase Body Fluid 23 U/L; Cholesterol Body Fluid 24 mg/dL (0-200); LDH Body Fluid 101 U/L; Total Protein Pleural Fluid 1.3 g/dL; Triglycerides Body Fluid 22 mg/dL (0-150); Uric Acid Body Fluid 9 mg/dL
[2022-05-11 21:02] LABS: Creatinine Body Fluid 0.47 (0.5-0.9)
[2022-05-11 21:09] LABS: Lactate (Lactic Acid level) 3.4 mmol/L (0.5-2.2)
[2022-05-11 21:28] LABS: Add Urine Culture? Yes; Add Urine Microscopic? YES; Bacteria Urine 4+ /hpf; Bilirubin Urine Neg (Negative); Blood Urine Neg (Negative); Glucose Urine UA Norm (Normal); Ketones Urine Negative (Negative); Leukocyte Esterase Urine Negative (Negative); Nitrate Urine Negative (Negative); Protein Urine 1+ (Negative); RBC Urine 0-4 /hpf (0-2); Squamous Epithelial Cell Urine 0-4 /hpf (0-5); Urine Appearance Clear (CLEAR); Urine Color Colorless (Yellow); Urobilinogen Urine Norm (Negative); WBC Urine 0-4 /hpf (0-5); pH Urine 7 (5-7)
[2022-05-11 21:31] LABS: Amphetamines Screen Urine Negative (Negative); Barbiturates Screen Urine Negative (Negative); Benzodiazepines Screen Urine Negative (Negative); Cocaine Screen Urine Negative (Negative); Opiate Screen Urine Negative (Negative); PCP Screen Urine Negative (Negative); THC Screen Urine Negative (Negative)
--- NOTE | 2022-05-11 22:37 | ECG_ITS ---
[facility] Test Date: 2022-05-11 Pat Name: Alonzo Goncalves Department: Room: [facility] Gender: Female Metal Technician: : 1965 Requested By: nAam Bhatti Order Number: [id number] Micah MD: Migdalia Scales M.D. Measurements Intervals [place] Rate: P: IN: QRS: QRSD: T: QT: QTc: Interpretive Statements Sinus rhythm Possible old inferior myocardial infarction Poor anterior R wave progression WARNING: DATA QUALITY MAY AFFECT INTERPRETATION Compared to ECG 05/11/2022 18:53:31 Sinus tachycardia no longer present Left ventricular hypertrophy no longer present ST (T wave) deviation no longer present Electronically Signed On 05-13-2022 19:19:29 CDT by Migdalia Scales M.D. [id number]
[2022-05-11 23:52] LABS: Ketone (Acetest) Serum Negative (Negative)
[2022-05-12] VITALS (154 sets, daily range): BP systolic 123–185; BP diastolic 83–117; PULSE 108–139; RESP 14–34; TEMP 36.3–36.6; O2SAT 70–100
[2022-05-12] LABS: Troponin 5 6HR 39.73 ng/L (0-10)
[2022-05-12 00:01] LABS: Troponin 5 6HR Delta 2.73 ng/L (0-12)
[2022-05-12 00:13] LABS: Estmated Average Glucose 105; Hemoglobin A1C 5.3 % (4.0-6.0)
[2022-05-12 00:16] LABS: HIV 1 & 2 Antibody Non-Reactive (Non-Reactiv); HIV 1 & 2 Antigen Non-Reactive (Non-Reactiv)
--- NOTE | 2022-05-12 00:36 | PC.NURSE ---
2014 Reported vital signs, including elevated heart rate and blood pressure and low O2 sat, as well as, O2 requirements that increased from 2L to 4L upon arrival to ICU from ER to Dr. Chakraborty. Clarified order for NS bolus. Orders to hold NS bolus. 0 Reported elevated heart rate and blood pressure to Dr. Chakraborty, included that patient can not have her ECHO done until her heart rate comes down. No new orders at this time.
[2022-05-12 01:01] LABS: Hepatitis A Antibody IgM Non-Reactive (Nonreactive); Hepatitis B Core IgM Non-Reactive (Nonreactive); Hepatitis C Virus Antibody Non-Reactive (Nonreactive)
[2022-05-12 01:23] LABS: Hepatitis B Surface Antigen Non-Reactive (Nonreactive)
[2022-05-12 03:35] LABS: Basophils # 0.1 10^3/uL (0.0-0.1); Basophils % 0.7 %; Eosinophils % 0.2 %; Hemoglobin 15.3 g/dL (11.5-15.3); Lymphocytes # 1.2 10^3/uL (0.8-4.8); Lymphocytes % 15.1 %; Mean Corpuscular HGB Conc 34.8 g/dL (30.0-36.0); Mean Corpuscular Hemoglobin 34.5 pg (28.0-34.0); Mean Corpuscular Volume 99.3 fl (81-99); Mean Platelet Volume 10.5 fL (7.4-10.4); Monocytes # 0.6 10^3/uL (0.2-0.9); Monocytes % 7.6 %; Neutrophils # 6.21 10^3/uL (1.8-7.7); Neutrophils % 76.2 %; Nucleated Red Blood Cells % 0 %; Platelet Count 227 10^3/cmm (130-400); Red Blood Count 4.43 10^6/uL (4.1-5.3); Red Cell Distribution Width 14.1 % (12.1-15.1); White Blood Count 8.2 10^3/uL (4.0-10.0)
[2022-05-12 04:07] LABS: Alanine Aminotransferase 27 U/L (0-33); Albumin Level 2.6 g/dL (3.5-5.2); Alkaline Phosphatase 134 IU/L (35-105); Anion Gap 19.8 (5-19); Aspartate Amino Transferase 55 U/L (0-32); Blood Urea Nitrogen 5 mg/dL (6-20); Calcium 8.1 mg/dL (8.5-10.5); Carbon Dioxide 23 mmol/L (22-29); Chloride 100 mmol/L (98-107); Glomerular Filtration Rate 127.2 mL/min (90-130); Glucose 109 mg/dL (65-115); Magnesium 1.3 mg/dL (1.7-2.3); NT Pro B Type Natriuretic Pept 2585 pg/mL (0-125); Osmolality Calculated 286 mOsm/kg (285-295); Phosphorus 4.5 mg/dL (2.5-4.5); Potassium 3.8 mmol/L (3.5-5.1); Sodium 139 mmol/L (136-145); Total Bilirubin 1.4 mg/dL (0.15-1.2); Total Protein 6.6 g/dL (6.6-8.7)
--- NOTE | 2022-05-12 04:58 | PC.NURSE ---
Reported elevated HR and BP to Dr. Chakraborty.
[2022-05-12 07:41] LABS: Glucose Point of Care 112 mg/dL (70-110)
[2022-05-12] MEDS: thiamine 100 mg Tablet PO (08:06)
[2022-05-12] MEDS: multivitamin therapeutic Tablet 1 TAB PO (08:06)
[2022-05-12] MEDS: folic acid 1 mg Tablet PO (08:06)
[2022-05-12] MEDS: enoxaparin 40 mg/0.4 mL Syringe SUBCUT (08:06)
[2022-05-12] MEDS: FUROsemide 10 mg/mL SDV 4mL 40 MG IVP (10:28)
[2022-05-12] MEDS: magnesium sulfate premix 4 GM/100 ML PREMIX IV (10:30)
--- NOTE | 2022-05-12 10:44 | PC.CHAP ---
Pastoral Care Encounter/Spiritual Assessment Type of Contact [] Declined catch basin cleaner visit [] Patient/Family/Request visit [] Outpatient visit [] Follow-up visit [] Physician referral [] Code/Alert [x] Routine visit [] Staff referral [] Actively dying [x] Patient sleeping [] Family support [] [] Out of room [] Palliative care [] [] Receiving care in room [] Pre-surgical visit [] Trauma [] Long length of stay [x] ICU visit [] Other: Relational/Emotional Strength [] Patient feels connected with others/family/visitors/staff [] Distress [] Loneliness/isolation [] Abandonment Spirituality of Patient [] Person of Anya [] Attends Zoroastrian of their Anya [] Believes in Prayer [] Reads Bible or Orthodox materials [] There are Spiritual issues to be addressed Assistant Program Manager Interventions [x] Prayer [] Active listening [] Non-anxious presence [] Spiritual/emotional support [] Crisis/trauma care [] Spiritual counseling [] Bereavement support [] Provided bereavement packet [] Provided Bible/devotional materials [] Provided toy/stuffed animal, coloring book to patient or family member [] Provided Communion [] Anointing/[place] [] Salvation [x] Completed spiritual assessment [] Other: Impact on Illness or Injury [] Angry [] Fearful [] Anxious [] Often cries [] Exhaustion [] Unable to work [] Unable to attend roman catholic [] Unable to walk/stand [] Unable to read [] Unable to drive [] Unable to eat/drink [] Unable to sleep [] Unable to be with family [] Patient intubated [] Other: Summary Time spent with patient
[2022-05-12 11:32] LABS: Glucose Point of Care 111 mg/dL (70-110)
--- NOTE | 2022-05-12 14:01 | P.PN_ITS ---
Subjective Subjective: Patient was seen this morning she tells me that she is feeling a lot better, her swelling is significantly improved, her breathing has improved, denies feeling anxious, does not feel her palpitations, no tremors, denies seeing or hearing things are not there, denies a history of alcohol withdrawal, Vitals/I&O/Wt Last Vital Signs Temp 97.4 F L 05/12/22 07:25 Pulse 126 H 05/12/22 11:15 Resp 23 H 05/12/22 11:15 BP 150/103 05/12/22 11:15 Pulse Ox 96 05/12/22 11:15 05/11/22 05/12/22 05/12/22 22:59 06:59 14:59 Intake Total 100 / 100 400 / 400 Output Total 3100 / 3100 900 / 900 Balance -3000 / -3000 -500 / -500 Weight last 48 hrs Weight 69.309 kg Physical Exam Const: COMMON NORMALS: no acute distress and patient oriented x3 Resp: COMMON NORMALS: normal respiratory effort, No retractions, No use of accessory muscles and clear to auscultation bilaterally AUSCULTATION: clear to auscultation bilaterally Cardio: COMMON NORMALS: regular rhythm, S1 normal heart sound present and S2 normal heart sound present RATE: tachycardic RHYTHM: regular rhythm HEART SOUNDS: S1 normal heart sound present and S2 normal heart sound present GI: COMMON NORMALS: Normal to inspection, nondistended, normoactive bowel sounds present, Soft to palpation and non-tender PALPATION: Yes Soft to palpation Extremity: OTHER: 1+ pitting edema bilateral extremity Neuro: COMMON NORMALS: patient oriented x3 Psych: COMMON NORMALS: mental status grossly normal Data : 05/12/22 02:52 05/12/22 02:52 Micro: Microbiology 05/11/22 18:50 Gram Stain - Final Pleural Fluid 05/11/22 18:48 Blood Culture - Preliminary Blood SPECIMEN COLLECTED 05/11/22 18:48 Blood Culture - Preliminary Blood SPECIMEN COLLECTED A&P Assessment and plan (1) Acute respiratory failure: Status: Acute (2) Pleural effusion, right: Status: Acute (3) Congestive heart failure: Status: Acute (4) Cardiomegaly: Status: Acute (5) Sinus tachycardia: Status: Acute (6) Alcohol withdrawal: Status: Acute Plan Acute hypoxic respiratory failure -Etiology likely multifactorial, likely CHF, fluid overload -Requiring 1 L, tachycardic heart rates in 130s, sinus -Has a large right pleural effusion, status post thoracocentesis, repeat chest x-ray shows improvement, transudative, likely secondary to CHF -Has cardiomegaly on exam, bilateral extremity edema, elevated BNP -Does have transaminitis Plan -Follow LOBITO es -Cardiac echo, -4 L -Lasix 40 mg IV daily -CT angiogram no pulmonary emboli -Monitor respiratory status -Monitor urine output -Mag, Phos, monitor creatinine -Troponin series, serial EKGs, monitor telemetry -Full code -Lovenox for DVT prophylaxis Alcoholism -Possibly going through alcohol withdrawal -CIWA score 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
[2022-05-12 17:23] LABS: Glucose Point of Care 109 mg/dL (70-110)
--- NOTE | 2022-05-12 19:14 | PC.NURSE ---
SHift SUmmary: uneventful shift. Patient rested in bed throughout the day Up frequently to use the restroom after lasix. total urine output has been 1750 mL, total fluid intake has been 800mL, leaving 200 mL of the fluid restriction until 7am. Heart rate has remaing in the high 1teens to 120.
[2022-05-12] MEDS: pantoprazole 40 mg SDV IVP (20:15)
[2022-05-12 20:35] LABS: Glucose Point of Care 129 mg/dL (70-110)
[2022-05-13] VITALS (119 sets, daily range): BP systolic 110–163; BP diastolic 78–117; PULSE 104–141; RESP 13–32; TEMP 36.4–37.1; O2SAT 90–99
[2022-05-13 05:50] LABS: Basophils % 0.5 %; Eosinophils # 0.1 10^3/uL (0.0-0.8); Eosinophils % 1.1 %; Hematocrit 39.8 % (37.0-47.0); Hemoglobin 13.9 g/dL (11.5-15.3); Lymphocytes # 1.3 10^3/uL (0.8-4.8); Lymphocytes % 17.5 %; Mean Corpuscular HGB Conc 34.9 g/dL (30.0-36.0); Mean Corpuscular Hemoglobin 34.8 pg (28.0-34.0); Mean Corpuscular Volume 99.7 fl (81-99); Mean Platelet Volume 10.5 fL (7.4-10.4); Monocytes # 0.6 10^3/uL (0.2-0.9); Monocytes % 8.6 %; Neutrophils # 5.36 10^3/uL (1.8-7.7); Nucleated Red Blood Cells % 0 %; Platelet Count 185 10^3/cmm (130-400); Red Blood Count 3.99 10^6/uL (4.1-5.3); White Blood Count 7.4 10^3/uL (4.0-10.0)
[2022-05-13 06:08] LABS: Alanine Aminotransferase 23 U/L (0-33); Albumin Level 2.4 g/dL (3.5-5.2); Alkaline Phosphatase 117 IU/L (35-105); Anion Gap 14.8 (5-19); Aspartate Amino Transferase 32 U/L (0-32); Blood Urea Nitrogen 9 mg/dL (6-20); Calcium 7.9 mg/dL (8.5-10.5); Carbon Dioxide 27 mmol/L (22-29); Chloride 97 mmol/L (98-107); Globulin 3.7 g/dL (1.3-4.6); Glomerular Filtration Rate 127.2 mL/min (90-130); Glucose 91 mg/dL (65-115); Osmolality Calculated 278 mOsm/kg (285-295); Potassium 3.8 mmol/L (3.5-5.1); Sodium 135 mmol/L (136-145); Total Protein 6.1 g/dL (6.6-8.7)
[2022-05-13 06:30] LABS: Magnesium 1.8 mg/dL (1.7-2.3); NT Pro B Type Natriuretic Pept 4197 pg/mL (0-125); Phosphorus 3.5 mg/dL (2.5-4.5)
[2022-05-13 07:25] LABS: Glucose Point of Care 101 mg/dL (70-110)
[2022-05-13] MEDS: multivitamin therapeutic Tablet 1 TAB PO (08:04)
[2022-05-13] MEDS: folic acid 1 mg Tablet PO (08:04)
[2022-05-13] MEDS: enoxaparin 40 mg/0.4 mL Syringe SUBCUT (08:04)
[2022-05-13] MEDS: thiamine 100 mg Tablet PO (08:04)
--- NOTE | 2022-05-13 08:13 | XR_ITS ---
WS: [id number] Portable AP upright chest, 05/13/2022 Clinical Data: sob Comparison: Portable chest, 05/11/2022. Findings: The right basilar opacity remains the same. There are small effusions. The heart is enlarge d. The upper lobes are clear. The aortic arch shows tortuosity. No pneumothorax is present. Monitor l mary jo are on the chest wall. XR/XR chest 1V portable [id number] Impression: 1. No change in right basilar opacity which may represent atelectasis and/or pn eumonia. 2. No change in cardiomegaly, atherosclerosis and small bilateral effusions.
--- NOTE | 2022-05-13 08:16 | US_ITS ---
WS: [id number] RIGHT UPPER QUADRANT ULTRASOUND HISTORY: hepatitis COMPARISON: None available. Liver: 14.2 cm in length. Liver is normal size with moderate coarse echogenicity throughout. Surface of the liver is slightly irregular. No mass or intrahepatic duct dilatation. Portal Vein: Normal hepatopetal flow with monophasic waveform. Gallbladder: Normally distended gallbladder with no stones or wall thickening. CBD: 1.0 cm, dilated. No intraluminal filling defect. No intrahepatic dilatation. Pancreas: Poorly visualized due to bowel gas. Pancreatic duct does not appear dilated. Right kidney: 12.7 cm in length. Normal size and echogenicity. No hydronephrosis or mass. Aorta and IVC: Unremarkable abdominal aorta and IVC. No ascites. US/US liver [id number] IMPRESSION: 1. Very mildly dilated common bile duct 1.0 cm. No stones identified or intrah epatic duct dilatation. Consider follow-up CT abdomen and pelvis with IV and or al contrast or MRCP. 2. Hepatic steatosis with early changes of cirrhosis suspected. 3. Pancreas poorly visualized. 4. No gallstones.
[2022-05-13] MEDS: FUROsemide 10 mg/mL SDV 4mL 40 MG IVP (08:27)
[2022-05-13] MEDS: magnesium sulfate premix 2 GM/50 ML PIGGYBACK IV (08:27)
[2022-05-13 10:07] LABS: T4 Total 4.8 mcg/dL (5.1-11.9)
--- NOTE | 2022-05-13 12:38 | P.PN_ITS ---
Subjective Subjective: Patient was seen this morning, she tells me she is feeling a lot better, still has some edema, denies any chest pain, no shortness of breath at rest Vitals/I&O/Wt Last Vital Signs Temp 98.7 F 05/13/22 07:30 Pulse 110 H 05/13/22 12:15 Resp 18 05/13/22 12:15 BP 128/87 05/13/22 12:15 Pulse Ox 96 05/13/22 12:15 05/12/22 05/13/22 05/13/22 22:59 06:59 14:59 Intake Total 500 / 900 100 / 1000 168 / 168 Output Total 850 / 1750 400 / 2150 1000 / 1000 Balance -350 / -850 -300 / -1150 -832 / -832 Weight last 48 hrs Weight 69.309 kg Physical Exam Const: COMMON NORMALS: no acute distress and patient oriented x3 Resp: COMMON NORMALS: normal respiratory effort, No retractions, No use of accessory muscles and clear to auscultation bilaterally AUSCULTATION: clear to auscultation bilaterally Cardio: COMMON NORMALS: regular rhythm, S1 normal heart sound present and S2 normal heart sound present RATE: tachycardic RHYTHM: regular rhythm HEART SOUNDS: S1 normal heart sound present and S2 normal heart sound present GI: COMMON NORMALS: Normal to inspection, nondistended, normoactive bowel sounds present, Soft to palpation and non-tender PALPATION: Yes Soft to palpation Extremity: COMMON NORMALS: no pedal edema Neuro: COMMON NORMALS: patient oriented x3 Psych: COMMON NORMALS: mental status grossly normal Data : 05/13/22 05:09 05/13/22 05:09 Micro: Microbiology 05/11/22 18:50 Gram Stain - Final Pleural Fluid Anaerobic Culture - Preliminary Body Fluid Culture - Preliminary 05/11/22 21:15 Urine Culture - Preliminary Urine,Clean Catch Gram Negative Rods 05/11/22 18:48 Blood Culture - Preliminary Blood NEGATIVE TO DATE 05/11/22 18:48 Blood Culture - Preliminary Blood NEGATIVE TO DATE A&P Assessment and plan (1) Acute respiratory failure: Status: Acute (2) Pleural effusion, right: Status: Acute (3) Congestive heart failure: Status: Acute (4) Cardiomegaly: Status: Acute (5) Sinus tachycardia: Status: Acute (6) Alcohol withdrawal: Status: Acute Plan Acute hypoxic respiratory failure -Etiology likely multifactorial, likely CHF, fluid overload -Requiring 1 L, tachycardic heart rates in the 110s, sinus -Has a large right pleural effusion, status post thoracocentesis, repeat chest x-ray shows improvement, transudative, likely secondary to CHF - Patient is negative 5 L - on exam, bilateral extremity edema, elevated BNP -Does have transaminitis Plan -Follow LOBITO -Cardiac echo still pending as tachycardic -Lasix 40 mg IV daily -CT angiogram no pulmonary emboli -Monitor respiratory status -Monitor urine output -Mag, Phos, monitor creatinine -Full code -Lovenox for DVT prophylaxis Alcoholism -Possibly going through alcohol withdrawal -CIWA score 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 For acute hypoxic respiratory failure secondary to CHF exacerbation, type unknown, likely fluid overload, likely alcoholic cardiomyopathy, transferred to the floors Coding Level of Care Code Acute [employer] Floor Layer for Shane [employer] Diagnoses Acute respiratory failure J96.00 Pleural effusion, right J90 Congestive heart failure I50.9 Cardiomegaly I51.7 Sinus tachycardia R00.0 Alcohol withdrawal F10.239
[2022-05-13] MEDS: cloNIDine 0.1 mg Tablet PO (17:05)
--- NOTE | 2022-05-13 17:44 | PC.NURSE ---
Patient transferred to room 279-2. Patient resting comfortably in bed, belongings at bedside. Chart left with help desk team leader staff.
--- NOTE | 2022-05-13 18:19 | PC.NURSE ---
I reported the high bp to the nurse 146/103 [id number]
[2022-05-13] MEDS: LORazepam 2 mg Tablet PO (23:59)
[2022-05-14] VITALS (24 sets, daily range): BP systolic 112–146; BP diastolic 79–98; PULSE 93–120; RESP 2–23; TEMP 36.5–36.9; O2SAT 93–98
[2022-05-14 05:53] LABS: Basophils % 0.6 %; Eosinophils # 0.2 10^3/uL (0.0-0.8); Eosinophils % 2.5 %; Hemoglobin 13.3 g/dL (11.5-15.3); Lymphocytes # 1.4 10^3/uL (0.8-4.8); Lymphocytes % 21.1 %; Mean Corpuscular HGB Conc 35.9 g/dL (30.0-36.0); Mean Corpuscular Hemoglobin 35.4 pg (28.0-34.0); Mean Corpuscular Volume 98.4 fl (81-99); Mean Platelet Volume 10.7 fL (7.4-10.4); Monocytes # 0.6 10^3/uL (0.2-0.9); Monocytes % 9.5 %; Neutrophils # 4.45 10^3/uL (1.8-7.7); Neutrophils % 66.2 %; Nucleated Red Blood Cells % 0 %; Platelet Count 160 10^3/cmm (130-400); Red Blood Count 3.76 10^6/uL (4.1-5.3); White Blood Count 6.7 10^3/uL (4.0-10.0)
[2022-05-14 06:11] LABS: Alanine Aminotransferase 19 U/L (0-33); Albumin Level 2.2 g/dL (3.5-5.2); Alkaline Phosphatase 93 IU/L (35-105); Aspartate Amino Transferase 34 U/L (0-32); Blood Urea Nitrogen 10 mg/dL (6-20); Calcium 7.8 mg/dL (8.5-10.5); Carbon Dioxide 26 mmol/L (22-29); Chloride 97 mmol/L (98-107); Globulin 3.3 g/dL (1.3-4.6); Glomerular Filtration Rate 164.5 mL/min (90-130); Glucose 95 mg/dL (65-115); NT Pro B Type Natriuretic Pept 4374 pg/mL (0-125); Osmolality Calculated 279 mOsm/kg (285-295); Sodium 135 mmol/L (136-145); Total Bilirubin 1.3 mg/dL (0.15-1.2); Total Protein 5.5 g/dL (6.6-8.7)
[2022-05-14 06:15] LABS: Creatinine Clr Calc Pharmacy 148.3108
[2022-05-14 06:16] LABS: Anion Gap 15.2 (5-19); Potassium 3.2 mmol/L (3.5-5.1)
[2022-05-14 06:34] LABS: Magnesium 1.6 mg/dL (1.7-2.3); Phosphorus 3.1 mg/dL (2.5-4.5)
[2022-05-14] MEDS: FUROsemide 40 mg Tablet PO (08:06)
[2022-05-14] MEDS: thiamine 100 mg Tablet PO (08:06)
[2022-05-14] MEDS: multivitamin therapeutic Tablet 1 TAB PO (08:06)
[2022-05-14] MEDS: enoxaparin 40 mg/0.4 mL Syringe SUBCUT (08:07)
[2022-05-14] MEDS: metoprolol tartrate 25 mg Tablet PO (08:07)
[2022-05-14] MEDS: folic acid 1 mg Tablet PO (08:08)
[2022-05-14] MEDS: pantoprazole DR 40 mg Tablet PO (08:08)
[2022-05-14] MEDS: magnesium sulfate premix 4 GM/100 ML PREMIX IV (08:12)
--- NOTE | 2022-05-14 08:15 | USCV_ITS ---
Alonzo Goncalves Age: 56 Gender: F : 1965 Exam Date: 05/14/2022 07:58 Ordering Phys: Rony Monique MD Technologist: GAMALIEL Exam Location: [facility] [place] Indication: Shortness of breath, Assess LV function BP: 137 / 92 HR: 109 Rhythm: Sinus Technical Quality: Adequate MEASUREMENTS (Male / Female) Normal Values 2D ECHO LV Diastolic Diameter PLAX 6.0 cm 4.2 - 5.9 / 3.9 - 5.3 cm LV Systolic Diameter PLAX 5.5 cm IVS Diastolic Thickness 0.9 cm 0.6 - 1.0 / 0.6 - 0.9 cm IVS Systolic Thickness 1.2 cm LVPW Diastolic Thickness 1.0 cm 0.6 - 1.0 / 0.6 - 0.9 cm LVPW Systolic Thickness 1.3 cm RV Chamber Size 2.2 cm LVOT Diameter 2.0 cm LV Ejection Fraction 2D Teich 20.6 % LV Ejection Fraction MOD 2C 27.6 % LV Ejection Fraction 2C AL 28.8 % LA Diameter 3.5 cm LA Width 5.1 cm LA Height 5.5 cm RA Width 4.1 cm RA Height 4.9 cm Aorta at Sinotubular Diameter 2.9 cm IVC Diameter 1.7 cm M-MODE Aortic Annulus Diameter 3.2 cm LA Ao Ratio MM 1.1 MV E Point Septal Separation 1.7 cm DOPPLER AV Peak Velocity 84.0 cm/s LVOT Peak Velocity 70.0 cm/s AV Area Cont Eq vti 3.5 cm squared AV Area Cont Eq pk 2.7 cm squared MV Area PHT 5.0 cm squared MV E' Velocity 62.0 cm/s Mitral E to MV E' Ratio 26.9 Mitral E to LV E' Lateral Ratio 19.7 Mitral E to LV E' Septal Ratio 43.9 TR Peak Velocity 261.4 cm/s TR Peak Gradient 27.3 mmHg TR Mean Velocity 171.3 cm/s TR Mean Gradient 13.6 mmHg TR Velocity Time Integral 72.1 cm Right Atrial Pressure 3.0 mmHg Pulmonary Artery Systolic Pressu 30.3 mmHg PV Peak Velocity 57.0 cm/s RV Acceleration Time 0.1 s RV Ejection Time 0.2 s RV AcT/ET 0.5 FINDINGS Left Ventricle Markedly dilated left ventricle. Severely decreased left ventricular systolic function. Left ventricular ejection fraction is estimated at 20 %. Severe global left ventricular hypokinesis. Grade II diastolic dysfunction, moderately elevated filling pressures. Right Ventricle Normal right ventricular size and systolic function. Right ventricular systolic pressure 30.3 mmHg. Right Atrium Normal right atrial size. Left Atrium Mildly increased left atrial size. Mitral Valve Mild mitral annular calcification. Mildly thickened mitral valve. No mitral valve stenosis. Moderate mitral valve regurgitation. Aortic Valve Structurally normal trileaflet aortic valve. No aortic valve stenosis. Trace aortic valve regurgitation. Tricuspid Valve Structurally normal tricuspid valve. No tricuspid valve stenosis. Mild tricuspid valve regurgitation. Pulmonic Valve Structurally normal pulmonic valve. No pulmonary valve stenosis. Trace pulmonary valve regurgitation. Pericardium No pericardial effusion. Aorta Normal size aortic root and proximal ascending aorta. IVC Normal IVC dimension with >50% respiratory change of the inferior vena cava. CONCLUSIONS 1. Markedly dilated left ventricle. Severely decreased left ventricular systolic function. Left ventricular ejection fraction is estimated at 20 %. Severe global left ventricular hypokinesis. Grade II diastolic dysfunction, moderately elevated filling pressures. 2. Normal right ventricular size and systolic function. 3. Mildly increased left atrial size. 4. Moderate mitral valve regurgitation. 5. No prior similar studies to compare. Migdalia Scales MD (Electronically Signed) Final Date: 14 May 2022 10:14 S
[2022-05-14] MEDS: lidocaine 1% 5 ML in potassium chloride premix 100 ML 25 ML IV (09:13)
[2022-05-14] MEDS: lisinopril 5 mg Tablet PO (12:13)
[2022-05-14 12:48] LABS: COMPLEMENT COMPONENT C3C 128 mg/dL (83-193); COMPLEMENT COMPONENT C4C 26 mg/dL (15-57)
[2022-05-14 12:57] LABS: COMPLEMENT, TOTAL (CH50) 51 U/mL (31-60)
--- NOTE | 2022-05-14 13:35 | PM.CONSULT ---
Providers/Reason For Consult Consulting Physician/Specialty*: Dr. Scales, Cardiology Reason for Consult*: Newly diagnosed cardiomyopathy Attending Physician: Rony Monique MD History of Present Illness History of Present Illness Alonzo Goncalves is a 56 year old female with a past medical history of hypertension and smoker presented with complain of shortness of breath and bilateral lower extremity edema.?She had COVID and had progressively worsening shortness of breath with exertion. She is a heavy alcoholic and drinks 6-7 drinks/day especially [place] and Whiskey. She denies any chest pain.?No significant family history of CAD.? CT chest showed large right pleural effusion and small left pleural effusion. ?Echo showed severely decreased LV function. She underwent thoracentesis with 1 L of straw colored pleural fluid removal on 05/11/22. She feels better. Review of Systems Const: Denies: fever(s), chills, fatigue or malaise Eyes: Denies: change in vision Card: Reports: edema, swelling of feet/ankles and dyspnea on exertion; Denies: chest pain, palpitations, lightheadedness or syncope Resp: Denies: productive cough GI: Denies: abdominal pain, nausea or vomiting : Denies: dysuria Musc: Denies: back pain Skin/Breast: Denies: rash Neuro: Denies: headache(s) or dizziness Endo: Denies: polyuria or polydipsia Medications/Allergies Home Medications Medication Instructions Recorded Confirmed Last Taken Type No Known Home Medications 05/11/22 05/11/22 Unknown History Allergies Allergy/AdvReac Type Severity Reaction Status Date / Time No Known Allergies Allergy Verified 05/11/22 16:35 Current Medications Generic Name Dose Route Start Last Admin Trade Name Freq PRN Reason Stop Dose Admin Enoxaparin Sodium 40 mg 05/12/22 09:00 05/14/22 08:07 Enoxaparin 40 Mg/0.4 Ml Syringe SUBCUT 40 mg Q24H DRAKE Administration Folic Acid 1 mg 05/12/22 09:00 05/14/22 08:08 Folic Acid 1 Mg Tablet PO 1 mg DAILY DRAKE Administration Furosemide 40 mg 05/14/22 08:00 05/14/22 08:06 Furosemide 40 Mg Tablet PO 40 mg DAILY@0800 DRAKE Administration Lisinopril 5 mg 05/14/22 10:15 05/14/22 12:13 Lisinopril 5 Mg Tablet PO 5 mg DAILY DRAKE Administration Lorazepam 2 mg 05/11/22 20:10 05/13/22 23:59 Lorazepam 2 Mg Tablet PO 2 mg Q4H PRN Administration WITHDRAWAL Protocol Metoprolol Tartrate 25 mg 05/14/22 07:45 05/14/22 08:07 Metoprolol Tartrate 25 Mg Tablet PO 25 mg Q12H DRAKE Administration Multivitamins Therapeutic 1 tab 05/12/22 09:00 05/14/22 08:06 Multivitamin Therapeutic Tablet PO 1 tab DAILY DRAKE Administration Pantoprazole Sodium 40 mg 05/14/22 09:00 05/14/22 08:[address] 40 Mg Tablet PO 40 mg DAILY DRAKE Administration Thiamine Mononitrate 100 mg 05/12/22 09:00 05/14/22 08:06 Thiamine 100 Mg Tablet PO 100 mg DAILY DRAKE Administration PFSH Acute PFSH: Medical History History of hypertension No significant past medical history Surgical History History of right knee surgery No significant past surgical history Family History Mother Lymphoma Father Hypertension Lung cancer Vitals/I&O/Wt Last Vital Signs Temp 98.0 F 05/14/22 11:15 Pulse 110 H 05/14/22 11:15 Resp 16 05/14/22 11:15 BP 134/89 05/14/22 11:15 Pulse Ox 95 05/14/22 11:15 05/13/22 05/14/22 05/14/22 22:59 06:59 14:59 Intake Total 180 / 348 750 / 1098 940 / 940 Output Total 300 / 1300 300 / 300 Balance -120 / -952 750 / -202 640 / 640 Physical Exam Const: COMMON NORMALS: no acute distress, patient oriented x3 and alert GENERAL APPEARANCE: cooperative, comfortable, well kempt and well hydrated HENMT: COMMON NORMALS: hearing grossly normal bilaterally, external ears normal and moist oral mucous membranes FACE & SINUS: normal facial exam NOSE: no Epistaxis present EXTERNAL EAR: Yes external ears normal MOUTH: lip normal Eye: COMMON NORMALS: EOMs intact bilaterally and no scleral icterus GENERAL EYE: appearance normal, both eyes and all related structures ALIGNMENT: Yes alignment normal Neck/C-Spine: COMMON NORMALS: supple and no JVD GENERAL: Yes normal visual inspection CAROTIDS: Yes normal carotid upstroke Lymph: LYMPHATIC: no lymphadenopathy noted Chest: COMMONS NORMALS: normal inspection of the chest and normal palpation of entire chest wall CHEST: Yes Symmetrical chest wall rise and No tenderness Resp: COMMON NORMALS: clear to auscultation bilaterally EFFORT & INSPECTION: Yes able to speak in complete sentences and No respiratory distress AUSCULTATION: clear to auscultation bilaterally, no crackles, no rales, no rhonchi and no wheezes Cardio: COMMON NORMALS: no JVD, regular rate, regular rhythm, S1 normal heart sound present, S2 normal heart sound present and Peripheral pulses 2+ throughout PALPATION: normal PMI RATE: regular rate RHYTHM: regular rhythm HEART SOUNDS: S1 normal heart sound present, S2 normal heart sound present, no gallops and no murmurs BRUITS: no carotid bruits PERIPHERAL PULSES: Peripheral pulses 2+ throughout, radial pulses present, posterior tibial pulses present and dorsalis pedis present GI: COMMON NORMALS: Soft to palpation AUSCULTATION: Yes normoactive bowel sounds PALPATION: Yes Soft to palpation, No Tenderness to palpation present (GI), No Guarding due to palpation present (GI) and No Rigid due to palpation Extremity: GENERAL: No clubbing, No cyanosis, Yes edema and No pallor Neuro: COMMON NORMALS: patient oriented x3, CN's II-XII intact bilaterally and no focal motor deficits SENSORIUM/ORIENTATION: Yes alert Psych: COMMON NORMALS: Normal thought process present and speech normal APPEARANCE: Yes well kempt SPEECH: Yes normal speech MOOD & AFFECT: Yes euthymic mood THOUGHT PROCESS: Normal thought process present THOUGHT CONTENT: Yes Normal thought content present Data : 05/14/22 05:35 05/14/22 05:35 Micro: Microbiology 05/11/22 18:50 Gram Stain - Final Pleural Fluid Anaerobic Culture - Preliminary Body Fluid Culture - Preliminary 05/11/22 21:15 Urine Culture - Preliminary Urine,Clean Catch Gram Negative Rods Other data: TTE (05/14/22) CONCLUSIONS ?1. Markedly dilated left ventricle. Severely decreased left ?ventricular systolic function. Left ventricular ejection ?fraction is estimated at 20 %. Severe global left ventricular ?hypokinesis. Grade II diastolic dysfunction, moderately elevated ?filling pressures. ?2. Normal right ventricular size and systolic function. ?3. Mildly increased left atrial size. ?4. Moderate mitral valve regurgitation. ?5. No prior similar studies to compare. Liver ultrasound (05/14/22) IMPRESSION: ? 1.? Very mildly dilated common bile duct 1.0 cm. No stones identified or intrahepatic duct dilatation. Consider follow-up CT abdomen and pelvis with IV and oral contrast or MRCP. 2.? Hepatic steatosis with early changes of cirrhosis suspected. 3.? Pancreas poorly visualized. 4.? No gallstones. CXR (05/11/22) IMPRESSION: 1. Small right pleural effusion, decreased in size after a thoracentesis. There is also improving aeration in the right middle and lower lobes suggesting partial resolution of atelectasis and/or pneumonia. Follow-up imaging to ensure complete resolution is recommended. 2. No pneumothorax. 3. Incidental/nonacute findings are listed in the report CTA chest (05/11/22) IMPRESSION: 1. Large right and small left pleural effusions. Right middle lobe and right lower lobe compressive atelectasis, underlying pneumonia cannot be ruled out. Recommend followup chest imaging to insure resolution of these findings. 2. No evidence for pulmonary embolism. 3. Severe cardiomegaly. 4. Incidental/nonacute findings are listed in the report. A&P Assessment and plan (1) Congestive heart failure: continue lisinopril and lasix -change to metoprolol succinate 50 mg BID -will add low dose aldactone after cath. -will plan for cardiac cathetarization in morning -will benefit from life vest Status: Acute (2) Hypertension: Status: Acute (3) Pleural effusion, right: Status: Acute (4) Sinus tachycardia: Status: Acute Plan Hypokalemia Hypomagnesemia Elevated AST Moderate MR Hepatic steatosis with early changes of cirrhosis Dilated common bile duct Alcoholic Thank you for allowing me to participate in patient's care. Please feel free to call with questions or concerns. 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
[2022-05-14 14:13] LABS: THYROID PEROXIDASE ANTIBODIES 1 IU/mL (<9)
--- NOTE | 2022-05-14 14:43 | P.PN_ITS ---
Subjective Subjective: Patient was seen multiple times throughout the morning, she tells me that she feels a lot better, continues to have some chest palpitations, but no chest pain per se, no cardiovascular history, her echocardiogram shows an EF of 20%, discussed cardiology consultation with consideration of coronary angiography, she agrees, to rule out underlying CAD, also given her diminished ejection fraction she needs to have a LifeVest, she is agreeable, advised of alcohol cessation, concerns for alcoholic cardiomyopathy, however we need to rule out underlying CAD, she agrees Vitals/I&O/Wt Last Vital Signs Temp 98.0 F 05/14/22 11:15 Pulse 110 H 05/14/22 11:15 Resp 16 05/14/22 11:15 BP 134/89 05/14/22 11:15 Pulse Ox 95 05/14/22 11:15 05/13/22 05/14/22 05/14/22 22:59 06:59 14:59 Intake Total 180 / 348 750 / 1098 1045 / 1045 Output Total 300 / 1300 300 / 300 Balance -120 / -952 750 / -202 745 / 745 Physical Exam Const: COMMON NORMALS: no acute distress and patient oriented x3 Resp: COMMON NORMALS: normal respiratory effort, No retractions, No use of accessory muscles and clear to auscultation bilaterally AUSCULTATION: clear to auscultation bilaterally Cardio: COMMON NORMALS: regular rate, regular rhythm, S1 normal heart sound present and S2 normal heart sound present RATE: regular rate RHYTHM: regular rhythm HEART SOUNDS: S1 normal heart sound present and S2 normal heart sound present GI: COMMON NORMALS: Normal to inspection, nondistended, normoactive bowel sounds present, Soft to palpation and non-tender PALPATION: Yes Soft to palpation Extremity: COMMON NORMALS: no pedal edema Neuro: COMMON NORMALS: patient oriented x3 Psych: COMMON NORMALS: mental status grossly normal Data : 05/14/22 05:35 05/14/22 05:35 Micro: Microbiology 05/11/22 21:15 Urine Culture - Final Urine,Clean Catch Escherichia coli 05/11/22 18:50 Gram Stain - Final Pleural Fluid Anaerobic Culture - Preliminary Body Fluid Culture - Preliminary A&P Assessment and plan (1) Acute respiratory failure: Status: Acute (2) Pleural effusion, right: Status: Acute (3) Congestive heart failure: Status: Acute (4) Cardiomegaly: Status: Acute (5) Sinus tachycardia: Status: Acute (6) Alcohol withdrawal: Status: Acute Plan Acute hypoxic respiratory failure -Etiology likely multifactorial, likely combined systolic and diastolic CHF CHF, fluid overload -Not requiring oxygen, tachycardic -Has a large right pleural effusion, status post thoracocentesis, repeat chest x-ray shows improvement, transudative, likely secondary to CHF - Patient is negative 3 L - on exam, minimal edema, elevated BNP -Does have transaminitis Plan -Follow LOBITO -Echocardiogram shows a diminished ejection fraction -Lasix 40 mg p.o. daily -CT angiogram no pulmonary emboli -Monitor respiratory status -Monitor urine output -Mag, Phos, monitor creatinine -Full code -Lovenox for DVT prophylaxis Alcoholism -Out of alcohol withdrawal with no -CIWA score Combined systolic and diastolic CHF exacerbation Systolic CHF, EF of 20% ?1. Markedly dilated left ventricle. Severely decreased left ?ventricular systolic function. Left ventricular ejection ?fraction is estimated at 20 %. Severe global left ventricular ?hypokinesis. Grade II diastolic dysfunction, moderately elevated ?filling pressures. ?2. Normal right ventricular size and systolic function. ?3. Mildly increased left atrial size. ?4. Moderate mitral valve regurgitation. ?5. No prior similar studies to compare. 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
[2022-05-14 15:57] LABS: CENTROMERE B ANTIBODY <1.0 NEG AI (<1.0 NEG); JO-1 ANTIBODY <1.0 NEG AI (<1.0 NEG); RNP ANTIBODY <1.0 NEG AI (<1.0 NEG); SCL-70 ANTIBODY <1.0 NEG AI (<1.0 NEG); SJOGREN'S ANTIBODY (SS-A) <1.0 NEG AI (<1.0 NEG); SM ANTIBODY <1.0 NEG AI (<1.0 NEG); SS-B <1.0 NEG AI (<1.0 NEG)
[2022-05-14 17:18] LABS: ANA SCREEN, IFA NEGATIVE (NEGATIVE)
[2022-05-14] MEDS: aspirin 81 mg EC Tablet PO (18:32)
[2022-05-14] MEDS: LORazepam 2 mg Tablet PO (21:58)
[2022-05-14] MEDS: metoprolol succinate ER (24 HR) 50 mg Tablet PO (21:58)
[2022-05-15] VITALS (39 sets, daily range): BP systolic 90–116; BP diastolic 64–85; PULSE 0–116; RESP 6–32; TEMP 36.6–37.1; O2SAT 84–99
[2022-05-15 04:19] LABS: Basophils # 0.1 10^3/uL (0.0-0.1); Basophils % 0.8 %; Eosinophils # 0.2 10^3/uL (0.0-0.8); Hematocrit 36.5 % (37.0-47.0); Lymphocytes # 1.6 10^3/uL (0.8-4.8); Lymphocytes % 21.7 %; Mean Corpuscular HGB Conc 35.6 g/dL (30.0-36.0); Mean Corpuscular Hemoglobin 35.3 pg (28.0-34.0); Mean Corpuscular Volume 99.2 fl (81-99); Mean Platelet Volume 10.7 fL (7.4-10.4); Monocytes # 0.8 10^3/uL (0.2-0.9); Monocytes % 10.8 %; Neutrophils # 4.73 10^3/uL (1.8-7.7); Neutrophils % 63.6 %; Nucleated Red Blood Cells % 0 %; Platelet Count 166 10^3/cmm (130-400); Red Blood Count 3.68 10^6/uL (4.1-5.3); White Blood Count 7.4 10^3/uL (4.0-10.0)
[2022-05-15 04:49] LABS: Alanine Aminotransferase 22 U/L (0-33); Albumin Level 2.5 g/dL (3.5-5.2); Alkaline Phosphatase 94 IU/L (35-105); Anion Gap 15.2 (5-19); Aspartate Amino Transferase 40 U/L (0-32); Blood Urea Nitrogen 9 mg/dL (6-20); Calcium 7.7 mg/dL (8.5-10.5); Carbon Dioxide 23 mmol/L (22-29); Chloride 93 mmol/L (98-107); Globulin 3.2 g/dL (1.3-4.6); Glomerular Filtration Rate 127.2 mL/min (90-130); Glucose 107 mg/dL (65-115); Magnesium 1.9 mg/dL (1.7-2.3); NT Pro B Type Natriuretic Pept 2567 pg/mL (0-125); Osmolality Calculated 265 mOsm/kg (285-295); Potassium 3.2 mmol/L (3.5-5.1); Sodium 128 mmol/L (136-145); Total Protein 5.7 g/dL (6.6-8.7)
--- NOTE | 2022-05-15 05:56 | XACV_ITS ---
Exam Room: [facility] Ht: 386 cm Wt: 29 kg BSA: 1.57 m2 Gender: Female : 1965 Any Known Allergies: No known allergies Exam Priority: Routine Procedure(s): Procedure Description: Diagnostic procedure Procedure Description: Left Heart Catheterization Procedure Description: Right Heart Catheterization Procedure Description: O2 saturation Procedure Description: Coronary Angiography Diagnostic Cath Status: Elective Diagnostic Findings * Angiography shows a co-dominant system. * Normal calibre left main artery with no stenosis. * Normal caliber circumflex artery with minor luminal irregularities. * Normal caliber right coronary artery with minor irregularities in proximal and mid right coronary artery. rPDA with mild disease.. Conclusions 1. Cardiac Catheterization study revealed no obstructive coronary artery disease. 2. Right atrial mean pressure of 19 mm Hg. 3. Pulmonary artery pressures are mildly elevated with 52/25, mean 36 mm Hg. 4. Pulmonary artery wedge pressures are moderately elevated 37/34, mean 33 mm Hg. 5. Cardiac output of 3.1 L/min and CI of 1.8 L/min/m2. LVEDP 29 mm Hg. 6. These findings suggest post capillary pulmonary hypertension. Recommendations * Continue current medical management and risk factor modification. LV EDP: 29 mmHg Left Ventriculography Findings: * Left Ventriculogram not performed to minimize contrast use. Pressures Phase:Rest AO : 109 / 79 ( 90 ) @ 10:04:00 AM 90 / 81 ( 86 ) @ 10:06:00 AM 105 / 89 ( 97 ) @ 10:09:00 AM 123 / 88 ( 101 ) @ 10:20:00 AM 120 / 69 ( 91 ) @ 10:20:00 AM LV : 118 / 1 / 28 @ 10:20:00 AM 117 / 2 / 29 @ 10:20:00 AM RV : 45 / 23 / 25 @ 9:53:00 AM PA : 52 / 25 ( 36 ) @ 9:51:00 AM RA : a wave = 20 v wave = 19 mean = 19 @ 9:54:00 AM PCW : a wave = 37 v wave = 34 mean = 33 @ 9:50:00 AM Hemodynamic Findings Right atrial mean pressure of 19 mm Hg. Right ventricular pressure 45/23, mean 25 mm Hg. Pulmonary artery pressures are mildly elevated with 52/25, mean 36 mm Hg. Pulmonary artery wedge pressures are moderately elevated 37/34, mean 33 mm Hg. Normal pulmonary vascular resistance. Pulmonary mild hypertension. O2 Content Phase:Rest PA : O2 Content O2: 51.5 @ 10:06:00 AM Saturations Phase:Rest AO : 93 @ 10:04:00 AM RA : 53 @ 10:20:00 AM RV : 49 @ 10:09:00 AM PA : 52 @ 10:06:00 AM Cardiac Output Phase:Rest Jorge : 3 @ 9:26:25 AM Jorge Cardiac Index: 2 @ 9:26:25 AM Flow Phase:Rest Qp : 3 @ 9:26:25 AM Qs : 3 @ 9:26:25 AM Valves Phase:DefaultPhase AV : 0.0 @ 9:26:25 AM 0.0 @ 9:26:25 AM AV Mean Gradient: 0.0 @ 9:26:25 AM 0.0 @ 9:26:25 AM AV Flow: 394 @ 9:26:25 AM Clinical Evaluation EBL: 5mL-10mL Procedural Details Procedure Consent Obtained. Pre-Procedure Time Out. Identified patient by full name and date of as verbalized by the patient/guarantor. Does the consent match the physician's order: Yes. Accurate & Complete Informed Consent: Yes. Inpatient/Outpatient History & Physical on Chart: Yes. If H&P is completed, is and addenduem needed: No; If yes, is the addendum complete: N/A. Visualize and Verify Site with Patient/Guarantor: N/A. Relevant Radiology Images available: Yes. Pre-op teaching completed and patient verbalized understanding. The risks, benefits, and alternatives of sedation and/or procedure were discussed by physician. The patient agrees to continue. Procedure started. PERRLA. Strong, equal hand case planner bilaterally. Lungs clear x 5 lobes. IV Site on Arrival: 20 gauge in the right anticubital. IV Site on Arrival: 20 gauge in the left anticubital. IV Fluids: 0.9% NaCl at KVO. 0 mL infused prior to catheter builder. Pre Procedural Pulses: right radial was 2+. A 5 singaporean TIG catheter in over wire. Oxygen started at 2liters/min via nasal canula. right groin was prepped with chloroprep then draped in the usual sterile fashion. right radial was prepped with chloroprep then draped in the usual sterile fashion. Physician notified. Baseline sample Acquired. HR: 104 BPM. [facility] Clinical Fraility Score: 3: Managing Well. Feltmaker And Weigher Indications: Cardiomyopathy. Physician arrived. Physician scrubbed in. Immediate Pre-Procedure Time Out. Correct Patient: Yes; Correct Procedure: Yes; Correct Site: Yes; Correct Patient Position: Yes; Correct Supplies: Yes; Dried Flammable Prep: Yes; Blood Products Available: N/A;. Lidocaine 1% infiltrated to the right brachial. wire inserted through the IV catheter. IV catheter out OTW. Cooks-Dian MON catheter inserted. Oximetry samples were obtained. Normal venous range: 60-85%. Normal arterial range: 95-100%. Pressure measurements obtained. Cooks-Dian out. Lidocaine 1% infiltrated to the right radial. Arterial access obtained. Multiple views taken of left coronary artery. Catheter redirected to the RCA. Catheter removed over the standard wire. A 5 singaporean JR4 catheter in over wire. Multiple views taken of right coronary artery. EDP Sample taken: LV 118/1,28; HR: 91 BPM; SpO2: 99%. Pullback taken: LV 117/2,29; AO 123/88(101); Mean: 0mmHg, Peak to Peak: 0mmHg, SEP: 8sec/min; HR: 92 BPM; SpO2: 98%. Catheter removed over the standard wire. A TR Band was successful obtaining hemostatsis at the Right Radial artery insertion site. A Manual Compression was successful obtaining hemostatsis at the Right Brachial Vein insertion site. Post Procedure: Pulses reassessed and unchanged. PERRLA. Strong, equal hand case planner bilaterally. No VTE prophylaxis required. Medication's Wasted: Lidocaine 1% = 3 mL. Medication's Wasted: Heparin = 1000 units. Medication's Wasted: Nitro = 49.8 mg. Total IV fluids: 57 mL. Contrast type used: Omnipaque 300 mgI/mL, 500 mL bottle. Complications: None. Estimated blood loss: 5mL-10mL. Responsiveness - Normal response to verbal stimuli; alert and oriented, PERRLA. Airway - Unaffected, no intervention required; spontaneous ventilation. Circulation: W/N/L, pulses unchanged. Nausea/Vomiting: No. Procedure completed. Patient transferred by wheelchair to [facility]. Vital chart was stopped. Access Site Site: Right Brachial Vein Sheath Size: 6 Fr Hemostasis Method: Manual Compression Hemostasis Success: Successful Site: Right Radial artery Sheath Size: 6 Fr Hemostasis Method: TR Band Hemostasis Success: Successful Procedure Medications Start: 8:13 AM Stop: 8:13 AM Medication: Fentanyl Amount: 50 mcg Route: I.V. Start: 8:39 AM Stop: 8:39 AM Medication: Versed Amount: 1 mg Start: 8:58 AM Stop: 8:58 AM Medication: Versed Amount: 1 mg Route: I.V. Start: 8:58 AM Stop: 8:58 AM Medication: Fentanyl Amount: 50 mcg Route: I.V. Start: 9:01 AM Stop: 9:01 AM Medication: Nitrogylcerin Amount: 200 mcg Route: I.A. Start: 9:03 AM Stop: 9:03 AM Medication: Heparin Amount: 5000 units Route: I.V. I, the attending physician, have reviewed and verified all procedure medications. Yes, all medications given per verbal order History/Risk Factors Hypertension: Yes Dyslipidemia: No Peripheral Arterial Disease (PAD): No Myocardial Infarction ([place]): No Obesity: No Renal Disease: No Tobacco Use: Current/Recent(w/in 1 year) Prior Interventions PCI: No CABG: No Valve Surgery: No Report Signatures Finalized by Migdalia Scales MD on 05/25/2022 06:57 AM
[2022-05-15] MEDS: lidocaine 1% 5 ML in potassium chloride premix 100 ML 50 ML IV (06:44)
[2022-05-15] MEDS: aspirin 325 mg Tablet PO (06:45)
[2022-05-15] MEDS: sodium chloride 0.9% 1,000 ML 50 ML IV (07:36)
[2022-05-15] MEDS: lisinopril 5 mg Tablet PO (07:36)
[2022-05-15] MEDS: thiamine 100 mg Tablet PO (07:36)
[2022-05-15] MEDS: folic acid 1 mg Tablet PO (07:36)
[2022-05-15] MEDS: pantoprazole DR 40 mg Tablet PO (07:37)
[2022-05-15] MEDS: diphenhydrAMINE 50 mg Capsule PO (07:37)
[2022-05-15] MEDS: metoprolol succinate ER (24 HR) 50 mg Tablet PO (07:37)
[2022-05-15] MEDS: potassium chloride ER 20 mEq Tablet PO (07:37)
[2022-05-15] MEDS: multivitamin therapeutic Tablet 1 TAB PO (07:38)
--- NOTE | 2022-05-15 08:34 | W.PM.OPSUD ---
Surgery/Procedure H&P Update DATE OF PROCEDURE: May 15, 2022 DATE H&P PERFORMED: 05/14/22 H&P UPDATE INFORMATION: I have reviewed H&P completed within last 30 days, I have examined patient prior to procedure and No changes to prior documentation PREOP DIAGNOSIS: Cardiomyopathy PRIMARY INDICATION FOR PROCEDURE: Nawly diagnosed cardiomyopathy PLANNED PROCEDURE: Operation Date: 05/15/22 08:00 Proposed Procedures p Cardiac Catheterization left and right(Left) - Migdalia Scales MD PATIENT REASSESSED PRIOR TO SEDATION, WITH NO CHANGE NOTED: Yes PHYSICAL EXAM: alert, oriented x 3, clear to auscultation bilaterally and regular rate & rhythm AIRWAY EVAL/ANESTHESIA PLAN: normal airway, ASA III, Monitored Anesthesia, Local Anesthesia, Risks, benefits & alternatives of sedation and/or procedure discussed and Patient agrees to continue as planned
[2022-05-15 09:14] LABS: Arterial Blood Gas Hematocrit 39.5 % (37-47); Blood Gas Operator Identificat GD; Blood Gas Sample Site Not specified; Blood Gas Sample Type Not specified; Carboxyhemoglobin 1.2 %THgb (0.4-20.1); HGB O2 Sat 91.6 % (95-100); Methemoglobin 0.7 % (0.4-1.5); Total Hemoglobin 12.9 g/dL (12-16)
[2022-05-15 09:16] LABS: Oxygen Device ROOM AIR
[2022-05-15 09:17] LABS: Arterial Blood Gas Hematocrit 21.7 % (37-47); Blood Gas Operator Identificat GD; Blood Gas Sample Site Not specified; Blood Gas Sample Type Not specified; Carboxyhemoglobin 1.5 %THgb (0.4-20.1); HGB O2 Sat 50.5 % (95-100); Methemoglobin 0.4 % (0.4-1.5); Total Hemoglobin 7.1 g/dL (12-16)
[2022-05-15 09:20] LABS: Blood Gas Operator Identificat GD; Blood Gas Sample Site Not specified; Blood Gas Sample Type Not specified; Carboxyhemoglobin 1.5 %THgb (0.4-20.1); HGB O2 Sat 47.6 % (95-100); Methemoglobin 0.5 % (0.4-1.5); Oxygen Device ROOM AIR; Total Hemoglobin 6.9 g/dL (12-16)
[2022-05-15 09:22] LABS: Arterial Blood Gas Hematocrit 16.3 % (37-47); Blood Gas Operator Identificat GD; Blood Gas Sample Site Not specified; Blood Gas Sample Type Not specified; Carboxyhemoglobin 1.5 %THgb (0.4-20.1); HGB O2 Sat 51.3 % (95-100); Methemoglobin 0.7 % (0.4-1.5); Oxygen Device ROOM AIR; Total Hemoglobin 5.3 g/dL (12-16)
[2022-05-15] MEDS: sodium chloride 0.9% 1,000 ML 75 ML IV (09:35)
--- NOTE | 2022-05-15 09:39 | P.PN_ITS ---
Subjective Subjective: s/p cardic cath today; normal coronaries on left heart cath. Pulmonary capillary wedge pressure of 33. Mean PA pressure of 52/25 (36) mmHg Medications: Reviewed: Yes Vitals/I&O/Wt Last Vital Signs Temp 98.7 F 05/15/22 04:00 Pulse 0 L 05/15/22 04:59 Resp 17 05/15/22 04:00 BP 116/85 05/15/22 04:00 Pulse Ox 95 05/15/22 04:00 05/14/22 05/15/22 05/15/22 22:59 06:59 14:59 Intake Total 480 / 1525 1000 / 2525 Balance 480 / 1225 1000 / 2225 Physical Exam Const: COMMON NORMALS: no acute distress, patient oriented x3 and alert GENERAL APPEARANCE: cooperative, comfortable, well kempt and well hydrated HENMT: COMMON NORMALS: hearing grossly normal bilaterally, external ears normal and moist oral mucous membranes FACE & SINUS: normal facial exam NOSE: no Epistaxis present EXTERNAL EAR: Yes external ears normal MOUTH: lip normal Eye: COMMON NORMALS: EOMs intact bilaterally and no scleral icterus GENERAL EYE: appearance normal, both eyes and all related structures ALIGNMENT: Yes alignment normal Neck/C-Spine: COMMON NORMALS: supple and no JVD GENERAL: Yes normal visual inspection CAROTIDS: Yes normal carotid upstroke Lymph: LYMPHATIC: no lymphadenopathy noted Chest: COMMONS NORMALS: normal inspection of the chest and normal palpation of entire chest wall CHEST: Yes Symmetrical chest wall rise and No tenderness Resp: COMMON NORMALS: clear to auscultation bilaterally EFFORT & INSPECTION: Yes able to speak in complete sentences and No respiratory distress AUSCULTATION: clear to auscultation bilaterally, no crackles, no rales, no rhonchi and no wheezes Cardio: COMMON NORMALS: no JVD, regular rate, regular rhythm, S1 normal heart sound present, S2 normal heart sound present and Peripheral pulses 2+ throughout PALPATION: normal PMI RATE: regular rate RHYTHM: regular rhythm HEART SOUNDS: S1 normal heart sound present, S2 normal heart sound present, no gallops and no murmurs BRUITS: no carotid bruits PERIPHERAL PULSES: Peripheral pulses 2+ throughout, radial pulses present, posterior tibial pulses present and dorsalis pedis present GI: COMMON NORMALS: Soft to palpation AUSCULTATION: Yes normoactive bowel sounds PALPATION: Yes Soft to palpation, No Tenderness to palpation present (GI), No Guarding due to palpation present (GI) and No Rigid due to palpation Extremity: GENERAL: No clubbing, No cyanosis, Yes edema and No pallor Neuro: COMMON NORMALS: patient oriented x3, CN's II-XII intact bilaterally and no focal motor deficits SENSORIUM/ORIENTATION: Yes alert Psych: COMMON NORMALS: Normal thought process present and speech normal APPEARANCE: Yes well kempt SPEECH: Yes normal speech MOOD & AFFECT: Yes euthymic mood THOUGHT PROCESS: Normal thought process present THOUGHT CONTENT: Yes Normal thought content present Data : 05/15/22 04:03 05/15/22 04:03 Micro: Microbiology 05/11/22 18:50 Gram Stain - Final Pleural Fluid Anaerobic Culture - Preliminary Body Fluid Culture - Preliminary 05/11/22 21:15 Urine Culture - Final Urine,Clean Catch Escherichia coli A&P Assessment and plan (1) Congestive heart failure: Dilated cardiomyopathy 2/2 alcohol abuse, NYHA 3 symptoms continue lisinopril and lasix -change to metoprolol succinate 50 mg BID -will add low dose aldactone on discharge. Moderately increased wedge pressure. -Consider transitioning to Entresto as an outpatient -will order life vest -May have LifeVest fitted as an outpatient if inpatient arrangements cannot be done. -Follow-up with Kami in 1 week and with me in 6 weeks Status: Acute (2) Hypertension: Status: Acute (3) Pleural effusion, right: S/p thoracentesis Status: Acute (4) Sinus tachycardia: Status: Acute Plan Hypokalemia Hypomagnesemia Elevated AST Moderate MR Hepatic steatosis with early changes of cirrhosis Dilated common bile duct Alcoholic : Counseled on alcohol cessation Thank you for allowing me to participate in patient's care. Please feel free to call with questions or concerns. Attestations Medical Necessity Statement*: May be discharged later today. Coding Level of Care Code Acute Pediatric Neurologist for Shane Fwjosué Exam Comprehensive Diagnoses Congestive heart failure I50.9 Hypertension I10 Pleural effusion, right J90 Sinus tachycardia R00.0
--- NOTE | 2022-05-15 10:27 | PC.NURSE ---
received from cardiac offset label rewinder at 0935 via w/c.report received.pt is alert and awake and oriented x 4.denies pain.sr on monitor.right radial tr band intact and inflated.right hand is warm to touch and with brisk capillary refill.palpable radial pulse noted distal to tr band.no hematoma noted.right venous brachial site with pressure bandage on and intact.instructed pt in activity restrictions s/p radial/venous procedure..and instructed to notify staff for any bleeding,pain,numbness...or for any concerns at all.pt verb understanding of instructions.
[2022-05-15] MEDS: FUROsemide 40 mg Tablet PO (10:49)
--- NOTE | 2022-05-15 13:00 | PM.DCS ---
Discharge Providers Date of Admission: 05/11/22 20:10 Date of Discharge: May 15, 2022 Attending Provider at Admission: Rony Monique MD Attending Provider at Discharge: Rony Monique MD Diagnoses at Discharge Discharge Diagnosis (1) Congestive heart failure: Status: Acute (2) Hypertension: Status: Acute (3) Pleural effusion, right: Status: Acute (4) Sinus tachycardia: Status: Acute Reason for Visit Reason for Visit: SOB, leg swelling Hospital Course Hospital Course This is a 56-year-old female with a past medical history of alcoholism, who presents [facility] for shortness of breath Patient was admitted to [facility] for acute hypoxic respiratory failure likely secondary to combined systolic diastolic CHF, fluid overload, with large right pleural effusion, requiring thoracocentesis, requiring inpatient diuresis, diuresed as inpatient, clinically improved, discharged on Lasix, potassium replacement, Aldactone with close follow-up with cardiology as outpatient follow-up with primary care provider to recheck creatinine and potassium on outpatient Patient was found to have combined systolic diastolic CHF, EF of 20%, with severe global left ventricular hypokinesia, underwent coronary angiogram without any findings of obstructive CAD, likely alcoholic cardiomyopathy. Patient was advised to abstain from alcohol consumption, her [employer] information has been filled out, will be fitted as outpatient. Follow-up with cardiology in 2 to 4 weeks. Nonetheless she has been discharged on beta-quinn, lisinopril, Aldactone as above. For her alcoholism, advised to abstain from alcohol use, given morbidity and mentality associated Physical Exam Const: COMMON NORMALS: no acute distress and patient oriented x3 Resp: COMMON NORMALS: normal respiratory effort, No retractions, No use of accessory muscles and clear to auscultation bilaterally AUSCULTATION: clear to auscultation bilaterally Cardio: COMMON NORMALS: regular rate, regular rhythm, S1 normal heart sound present and S2 normal heart sound present RATE: regular rate RHYTHM: regular rhythm HEART SOUNDS: S1 normal heart sound present and S2 normal heart sound present GI: COMMON NORMALS: Normal to inspection, nondistended, normoactive bowel sounds present, Soft to palpation, non-tender and No hepatosplenomegaly present PALPATION: Yes Soft to palpation and Yes No hepatosplenomegaly present Extremity: COMMON NORMALS: no pedal edema Neuro: COMMON NORMALS: patient oriented x3 Psych: COMMON NORMALS: mental status grossly normal Discharge Data Studies Completed and Pending Completed Studies During Hospitalization Category Date Time Status CT angio chest PE protcl [id number] Stat Cat Scan 05/11/22 16:44 Completed XR chest 1V portable [id number] Routine Exams 05/13/22 08:13 Completed XR chest 1V portable [id number] Stat Exams 05/11/22 16:37 Completed XR chest 1V portable [id number] Stat Exams 05/11/22 19:33 Completed Cytology [PTH] Routine Pth 05/11/22 19:05 Completed CV. echo complete* [id number] Routine Ultrasound 05/14/22 08:15 Completed US liver [id number] Routine Ultrasound 05/13/22 08:16 Completed US venous duplex lower extremity RT [CV venous duplex Ultrasound 05/11/22 16:[place] [id number]] Stat Pending at discharge Category Date Time Status MANAGER STRATEGIC SOURCING request for service Routine Exams 05/15/22 05:56 Ordered ABG Coox Only Stat Lab 05/15/22 09:00 Results ABG Coox Only Stat Lab 05/15/22 09:00 Results ABG Coox Only Stat Lab 05/15/22 09:00 Results ABG Coox Only Stat Lab 05/15/22 09:00 Results LOBITO Profile Rheumatology Stat Lab 05/11/22 16:40 Results Anaerobic Culture Routine Lab 05/11/22 18:50 Results Blood Culture Stat Lab 05/11/22 18:48 Results Body Fluid Culture & GS Routine Lab 05/11/22 18:50 Results Magnesium AM LABS Lab 05/16/22 04:00 Ordered Magnesium AM LABS Lab 05/17/22 04:00 Ordered Mycobacteria, Culture w/Fluor Routine Lab 05/11/22 18:50 Received NT Pro B Type Natriuretic Pept QAM Lab 05/16/22 06:00 Ordered NT Pro B Type Natriuretic Pept QAM Lab 05/17/22 06:00 Ordered Phosphorus AM LABS Lab 05/16/22 04:00 Ordered Phosphorus AM LABS Lab 05/17/22 04:00 Ordered Radiology Impressions Chest CTA 05/11/22 16:44 IMPRESSION: 1. Large right and small left pleural effusions. Right middle lobe and right lower lobe compressive atelectasis, underlying pneumonia cannot be ruled out. Recommend followup chest imaging to insure resolution of these findings. 2. No evidence for pulmonary embolism. 3. Severe cardiomegaly. 4. Incidental/nonacute findings are listed in the report. ADDENDUM: 05/11/22 1727 Urgent results were discussed with BRANDEN Lee on 05/11/2022 at 5:25 PM CDT. Venous Duplex 05/11/22 16:46 IMPRESSION: 1. No evidence for deep venous thrombosis. 2. Moderate subcutaneous edema in the right calf. Chest X-Ray 05/13/22 08:13 Impression: 1. No change in right basilar opacity which may represent atelectasis and/or pneumonia. 2. No change in cardiomegaly, atherosclerosis and small bilateral effusions. Liver Ultrasound 05/13/22 08:16 IMPRESSION: 1. Very mildly dilated common bile duct 1.0 cm. No stones identified or intrahepatic duct dilatation. Consider follow-up CT abdomen and pelvis with IV and oral contrast or MRCP. 2. Hepatic steatosis with early changes of cirrhosis suspected. 3. Pancreas poorly visualized. 4. No gallstones. Laboratory Results WBC 7.4 10^3/uL (4.0-10.0) 05/15/22 04:03 RBC 3.68 10^6/uL (4.1-5.3) L 05/15/22 04:03 Hgb 13.0 g/dL (11.5-15.3) 05/15/22 04:03 Hct 36.5 % (37.0-47.0) L 05/15/22 04:03 MCV 99.2 fl (81-99) H 05/15/22 04:03 MCH 35.3 pg (28.0-34.0) H 05/15/22 04:03 MCHC 35.6 g/dL (30.0-36.0) 05/15/22 04:03 RDW 14.0 % (12.1-15.1) 05/15/22 04:03 Plt Count 166 10^3/cmm (130-400) 05/15/22 04:03 MPV 10.7 fL (7.4-10.4) H 05/15/22 04:03 Neut % (Auto) 63.6 % 05/15/22 04:03 Lymph % (Auto) 21.7 % 05/15/22 04:03 [place] % (Auto) 10.8 % 05/15/22 04:03 Eos % (Auto) 3.0 % 05/15/22 04:03 Baso % (Auto) 0.8 % 05/15/22 04:03 Neut # (Auto) 4.73 10^3/uL (1.8-7.7) 05/15/22 04:03 Lymph # (Auto) 1.6 10^3/uL (0.8-4.8) 05/15/22 04:03 [place] # (Auto) 0.8 10^3/uL (0.2-0.9) 05/15/22 04:03 Eos # (Auto) 0.2 10^3/uL (0.0-0.8) 05/15/22 04:03 Baso # (Auto) 0.1 10^3/uL (0.0-0.1) 05/15/22 04:03 Nucleated RBC % (auto) 0 % 05/15/22 04:03 Nucleated RBCs # 0.0 /100WBC 05/15/22 04:03 Differential Comment Yes 05/11/22 18:50 ESR 34 mm/hr (0-15) H 05/11/22 16:40 PT 14.90 SECONDS (12.1-14.9) 05/11/22 16:40 INR 1.14 (0.8-1.2) 05/11/22 16:40 APTT 31.1 SECONDS (23.9-36.7) 05/11/22 16:40 Specimen Type Not specified 05/15/22 09:00 Specimen Type Not specified 05/15/22 09:00 Specimen Type Not specified 05/15/22 09:00 Specimen Type Not specified 05/15/22 09:00 Sample Site Not specified 05/15/22 09:00 Sample Site Not specified 05/15/22 09:00 Sample Site Not specified 05/15/22 09:00 Sample Site Not specified 05/15/22 09:00 Juan J Test N/a 05/15/22 09:00 Juan J Test N/a 05/15/22 09:00 Juan J Test N/a 05/15/22 09:00 Juan J Test N/a 05/15/22 09:00 Hematocrit 16.3 % (37-47) L 05/15/22 09:00 Hematocrit 21.0 % (37-47) L 05/15/22 09:00 Hematocrit 21.7 % (37-47) L 05/15/22 09:00 Hematocrit 39.5 % (37-47) 05/15/22 09:00 Hgb O2 Saturation 47.6 % (95-100) L 05/15/22 09:00 Hgb O2 Saturation 50.5 % (95-100) L 05/15/22 09:00 Hgb O2 Saturation 51.3 % (95-100) L 05/15/22 09:00 Hgb O2 Saturation 91.6 % (95-100) L 05/15/22 09:00 Carboxyhemoglobin 1.2 %THgb (0.4-20.1) 05/15/22 09:00 Carboxyhemoglobin 1.5 %THgb (0.4-20.1) 05/15/22 09:00 Carboxyhemoglobin 1.5 %THgb (0.4-20.1) 05/15/22 09:00 Carboxyhemoglobin 1.5 %THgb (0.4-20.1) 05/15/22 09:00 Methemoglobin 0.4 % (0.4-1.5) 05/15/22 09:00 Methemoglobin 0.5 % (0.4-1.5) 05/15/22 09:00 Methemoglobin 0.7 % (0.4-1.5) 05/15/22 09:00 Methemoglobin 0.7 % (0.4-1.5) 05/15/22 09:00 Total Hemoglobin 5.3 g/dL (12-16) L 05/15/22 09:00 Total Hemoglobin 6.9 g/dL (12-16) L 05/15/22 09:00 Total Hemoglobin 7.1 g/dL (12-16) L 05/15/22 09:00 Total Hemoglobin 12.9 g/dL (12-16) 05/15/22 09:00 O2 Delivery Device Room air 05/15/22 09:00 O2 Delivery Device Room air 05/15/22 09:00 O2 Delivery Device Room air 05/15/22 09:00 O2 Delivery Device roomair 05/15/22 09:00 FiO2 21.0 % 05/15/22 09:00 Assignment Officer ID Gd 05/15/22 09:00 Assignment Officer ID Gd 05/15/22 09:00 Assignment Officer ID Gd 05/15/22 09:00 Assignment Officer ID Gd 05/15/22 09:00 Sodium 128 mmol/L (136-145) L 05/15/22 04:03 Potassium 3.2 mmol/L (3.5-5.1) L 05/15/22 04:03 Chloride 93 mmol/L (98-107) L 05/15/22 04:03 Carbon Dioxide 23 mmol/L (22-29) 05/15/22 04:03 Anion Gap 15.2 (5-19) 05/15/22 04:03 BUN 9 mg/dL (6-20) 05/15/22 04:03 Creatinine 0.5 mg/dL (0.5-0.9) 05/15/22 04:03 GFR Calculation 127.2 mL/min (90-130) 05/15/22 04:03 Glucose 107 mg/dL (65-115) 05/15/22 04:03 POC Glucose 101 mg/dL (70-110) 05/13/22 07:13 Estimat Average Glucose 105 05/11/22 16:40 Hemoglobin A1c 5.3 % (4.0-6.0) 05/11/22 16:40 Calculated Osmolality 265 mOsm/kg (285-295) L 05/15/22 04:03 Lactate 3.4 mmol/L (0.5-2.2) H 05/11/22 16:40 Calcium 7.7 mg/dL (8.5-10.5) L 05/15/22 04:03 Phosphorus 3.0 mg/dL (2.5-4.5) 05/15/22 04:03 Magnesium 1.9 mg/dL (1.7-2.3) 05/15/22 04:03 Ferritin 286 ng/mL (15-150) H 05/11/22 16:40 Total Bilirubin 1.0 mg/dL (0.15-1.2) 05/15/22 04:03 GGT 584 U/L (5-36) H 05/11/22 18:48 AST 40 U/L (0-32) H 05/15/22 04:03 ALT 22 U/L (0-33) 05/15/22 04:03 Alkaline Phosphatase 94 IU/L (35-105) 05/15/22 04:03 Creatine Kinase 245 U/L (26-192) H 05/11/22 16:40 CK-MB (CK-2) 7.1 ng/mL (0-5.34) H 05/11/22 16:40 Troponin T Baseline 37 ng/L (0-10) H 05/11/22 16:40 Troponin T 120 Minute 35.99 ng/L (0-10) H 05/11/22 18:48 Delta Troponin T -1.01 ABS# (0-10) L 05/11/22 18:48 Troponin T Hi Sens 6Hr 39.73 ng/L (0-10) H 05/11/22 23:29 Troponin T Hi Sens 6Hr Delta 2.73 ng/L (0-12) 05/11/22 23:29 C-Reactive Protein 4.5 mg/L (0.0-4.9) 05/11/22 16:40 NT-Pro-B Natriuret Pep 2567 pg/mL (0-125) H 05/15/22 04:03 Total Protein 5.7 g/dL (6.6-8.7) L 05/15/22 04:03 Albumin 2.5 g/dL (3.5-5.2) L 05/15/22 04:03 Globulin 3.2 g/dL (1.3-4.6) 05/15/22 04:03 Vitamin B12 873 pg/mL (232-1245) 05/11/22 16:40 Folate 5.2 ng/mL (4.8-37.3) 05/11/22 16:40 Procalcitonin 0.03 ng/mL (0-0.5) 05/11/22 16:40 TSH 3.98 uIU/mL (0.27-4.20) 05/11/22 16:40 Thyroxine (T4) 4.8 mcg/dL (5.1-11.9) L 05/11/22 16:40 Free T3 2.8 PG/ML (2.0-4.4) 05/11/22 16:40 Urine Color Colorless (Yellow) 05/11/22 21:15 Urine Appearance Clear (CLEAR) 05/11/22 21:15 Urine pH 7 (5-7) 05/11/22 21:15 Ur Specific [place] 1.010 (1.005-1.030) 05/11/22 21:15 Urine Protein 1+ (Negative) H 05/11/22 21:15 Urine Glucose (UA) Norm (Normal) 05/11/22 21:15 Urine Ketones Negative (Negative) 05/11/22 21:15 Urine Blood Neg (Negative) 05/11/22 21:15 Urine Nitrate Negative (Negative) 05/11/22 21:15 Urine Bilirubin Neg (Negative) 05/11/22 21:15 Urine Urobilinogen Norm mg/dL (Negative) 05/11/22 21:15 Ur Leukocyte Esterase Negative (Negative) 05/11/22 21:15 Urine RBC 0-4 /hpf (0-2) H 05/11/22 21:15 Urine WBC 0-4 /hpf (0-5) H 05/11/22 21:15 Ur Squamous Epith Cells 0-4 /hpf (0-5) H 05/11/22 21:15 Amorphous Sediment Not Reportable 05/11/22 21:15 Urine Bacteria 4+ /hpf (NONE) H 05/11/22 21:15 Fluid Color Pale yellow 05/11/22 18:50 Fluid Appearance Clear 05/11/22 18:50 Fluid Specific Grav 1.020 05/11/22 18:50 Fluid pH 6.5 05/11/22 18:50 Fluid WBC 467 /uL 05/11/22 18:50 Fluid RBC 1.000 10^3/uL 05/11/22 18:50 Fluid Hematocrit 0.0 % 05/11/22 18:50 Fld Polynuclear WBCs # 0.044 05/11/22 18:50 Fld Polynuclear WBCs % 9.400 % 05/11/22 18:50 Fl Mononucl WBCs #(Auto) 0.423 05/11/22 18:50 Fl Mononuclear % Auto 90.600 % 05/11/22 18:50 Fluid Glucose 117.0 mg/dL 05/11/22 18:50 Fluid Albumin 0.6 g/dL 05/11/22 18:50 Fluid LDH 101 U/L 05/11/22 18:50 Fluid Amylase 23 U/L 05/11/22 18:50 Fluid Creatinine 0.47 (0.5-0.9) L 05/11/22 18:50 Fluid Alk Phosphatase 15 IU/L 05/11/22 18:50 Fluid Cholesterol 24 mg/dL (0-200) 05/11/22 18:50 Fluid Triglycerides 22 mg/dL (0-150) 05/11/22 18:50 Fluid Uric Acid 9 mg/dL 05/11/22 18:50 Pleural Total Protein 1.3 g/dL 05/11/22 18:50 Urine Opiates Screen Negative ng/mL (Negative) 05/11/22 21:15 Ur Barbiturates Screen Negative ng/mL (Negative) 05/11/22 21:15 Ur Phencyclidine Scrn Negative ng/mL (Negative) 05/11/22 21:15 Ur Amphetamines Screen Negative ng/mL (Negative) 05/11/22 21:15 U Benzodiazepines Scrn Negative ng/mL (Negative) 05/11/22 21:15 Urine Cocaine Screen Negative ng/mL (Negative) 05/11/22 21:15 U Marijuana (THC) Screen Negative ng/mL (Negative) 05/11/22 21:15 Ethyl Alcohol 222 mg/dL (0-10) H 05/11/22 16:40 Serum Ketones Negative (Negative) 05/11/22 23:29 Rheumatoid Factor 10.0 IU/mL (0-14) 05/11/22 23:29 LOBITO IFA Animal Tis Res Negative (NEGATIVE) 05/11/22 16:40 BOB-1 Antibody <1.0 neg AI (<1.0 NEG) 05/11/22 16:40 SS-A Antibody <1.0 neg AI (<1.0 NEG) 05/11/22 16:40 SS-B Antibody <1.0 neg AI (<1.0 NEG) 05/11/22 16:40 Sm (Carrizales) Antibody <1.0 neg AI (<1.0 NEG) 05/11/22 16:40 TILE AND MARBLE SETTER Antibody <1.0 neg AI (<1.0 NEG) 05/11/22 16:40 Scl-70 Antibody <1.0 neg AI (<1.0 NEG) 05/11/22 16:40 Centromere B Antibody <1.0 neg AI (<1.0 NEG) 05/11/22 16:40 Thyroid Peroxidase Ab 1 IU/mL (<9) 05/11/22 16:40 Complement C3c 128 mg/dL (83-193) 05/11/22 16:40 Complement C4c 26 mg/dL (15-57) 05/11/22 16:40 CH50 Classical Pathway 51 U/mL (31-60) 05/11/22 16:40 Hepatitis A IgM Ab Non-reactive (Nonreactive) 05/11/22 23:29 Hep Bs Antigen Non-reactive (Nonreactive) 05/11/22 23:29 Hep B Core IgM Ab Non-reactive (Nonreactive) 05/11/22 23:29 Hepatitis C Antibody Non-reactive (Nonreactive) 05/11/22 23:29 HIV 1&2 Ab & HIV 1 Ag Non-reactive (Non-Reactiv) 05/11/22 23:29 HIV 1&2 Antibody Non-reactive (Non-Reactiv) 05/11/22 23:29 Vitals Last Vital Signs Temp 97.9 F 05/15/22 12:00 Pulse 93 05/15/22 12:00 Resp 16 05/15/22 12:00 BP 93/69 05/15/22 12:00 Pulse Ox 96 05/15/22 12:00 Discharge Plan Discharge Patient Disposition: Home Condition: Stable Prescriptions: New multivitamin with folic acid [Thera] 400 mcg Tablet 1 tab PO DAILY 30 Days Qty: 30 0RF thiamine mononitrate (vit B1) [Vitamin B-1 (mononitrate)] 100 mg Tablet 100 mg PO DAILY 30 Days Qty: 30 0RF pantoprazole 40 mg Tablet,Delayed Release (Dr/Ec) 40 mg PO DAILY 30 Days Qty: 30 0RF aspirin 81 mg Tablet,Delayed Release (Dr/Ec) 81 mg PO DAILY 30 Days Qty: 30 0RF potassium chloride [Klor-Con M20] 20 mEq Tablet,Er Particles/Crystals 20 meq PO DAILY 30 Days Qty: 30 0RF spironolactone 25 mg Tablet 12.5 mg PO DAILY 30 Days Qty: 30 0RF folic acid 1 mg Tablet 1 mg PO DAILY 30 Days Qty: 30 0RF furosemide 40 mg Tablet 20 mg PO DAILY@0800 30 Days Qty: 30 0RF lisinopril 5 mg Tablet 5 mg PO DAILY Qty: 30 0RF metoprolol succinate 50 mg Tablet Extended Release 24 Hr 50 mg PO DAILY 30 Days Qty: 30 0RF No Action No Known Home Medications 0RF Discharge Orders: Discharge Order (Routine); Ordered 05/15/22 Ordered By: Rony Monique Referrals: Sammy Easton DO [Physician] - 05/19/22 8:15 am (Please arrange new patient appointment.) Migdalia Scales MD [Physician] - 2 weeks Discharge Diet: Cardiac Discharge Activity: Resume usual activity Patient Instructions: Alcohol Abuse, Heart Failure (DC), Cirrhosis (DC), Pleural Effusion (DC), Abuse of Alcohol (DC), Alcohol Withdrawal (DC), Low-Sodium Diet (DC), Opioid Safety Activity Restrictions/Additional Instructions: - Please abstain from alcohol consumption -Take multivitamins as prescribed -Take Lasix as prescribed -Follow-up with cardiology in 2 weeks -Take blood pressure medications as prescribed -If you feel lightheaded or dizzy go to the emergency room Discharge Attestations Time Spent in Discharge Care*: less than 30 min Quality Metrics Clinical Quality Measures [ No reported AMI, CVA or VTE this stay] Coding Level of Care Code Acute Chg FW DC note Diagnoses Congestive heart failure I50.9 Hypertension I10 Pleural effusion, right J90 Sinus tachycardia R00.0
--- NOTE | 2022-05-15 15:46 | PC.NURSE ---
discharge instructions given and explained.phone number for [facility] provided ,in the event [facility] does not contact pt.pt and cg verb understanding of instructions.medication doses provided for tuesday.pt and cg verb understanding to picker meds at [facility] on tuesday.discharged via w/c to exit.spouse to drive pt home.
[2022-05-18 15:07] LABS: DNA AB (DS) CRITHIDIA,IFA NEGATIVE (NEGATIVE)
== END 2022-05-15 15:50 | disposition home or self-care (01) | DRG 286 ==
LOC: ER 17:15 → ICU 05-12 05:04 → MEDSURG 05-13 17:25
PROVIDERS: Internal Medicine Cardiovascular Disease; Internal Medicine Pulmonary Disease; Admitting Provider Family Medicine; Emergency Provider Family Medicine; Visit Provider Family Medicine
PROC: 4A023N8 Measurement of Cardiac Sampling and Pressure, Bilateral, Percutaneous Approach (ICD-10-PCS; principal; 2022-05-15 08:00)
DX: I11.0 Hypertensive heart disease with heart failure (principal); I50.41 Acute combined systolic (congestive) and diastolic (congestive) heart failure; J96.01 Acute respiratory failure with hypoxia; F10.239 Alcohol dependence with withdrawal, unspecified; J90 Pleural effusion, not elsewhere classified; Z86.16 Personal history of COVID-19; F10.229 Alcohol dependence with intoxication, unspecified; I42.6 Alcoholic cardiomyopathy; K70.30 Alcoholic cirrhosis of liver without ascites; K70.0 Alcoholic fatty liver; Y90.7 Blood alcohol level of 200-239 mg/100 ml; K70.10 Alcoholic hepatitis without ascites; Z91.128 Patient's intentional underdosing of medication regimen for other reason; F17.200 Nicotine dependence, unspecified, uncomplicated; H05.20 Unspecified exophthalmos; E83.42 Hypomagnesemia; E87.6 Hypokalemia; K83.8 Other specified diseases of biliary tract
CPT/HCPCS: 36415; 36416; 71045; 71275; 76705; 80053; 80074; 80306; 80307; 80503; 81001; 82009; 82042; 82150; 82465; 82550; 82553; 82570; 82607; 82728; 82746; 82810; 82945; 82962; 82977; 83036; 83605; 83615; 83735; 83880; 83986; 84075; 84100; 84145; 84157; 84315; 84436; 84443; 84478; 84481; 84484; 84560; 85014; 85025; 85610; 85651; 85730; 86140; 86160; 86162; 86235; 86255; 86376; 86431; 87015; 87040; 87070; 87075; 87077; 87086; 87116; 87186; 87205; 87206; 87801; 87806; 88108; 88305; 89050; 93005; 93306; 93452; 93453; 93458; 93971; 94664; 96360; 96365; 96372; 99152; 99153; 99291; C1751; C1769; C1887; C1894; C9113; J1644; J1650; J1940; J2250; J3010; J3411; J3475; J3480; J3490; J7030; Q0163; Q9967

== ENCOUNTER → 2022-05-26 16:31 | Outpatient (BNVA) | payer MEDICAID, SELFPAY | PROVIDERS: Visit Provider Family Medicine | DX: I51.7 Cardiomegaly (principal); K70.10 Alcoholic hepatitis without ascites; I10 Essential (primary) hypertension; E87.6 Hypokalemia; E87.1 Hypo-osmolality and hyponatremia | CPT/HCPCS: 80053; 85025 ==

== ENCOUNTER → 2022-06-22 15:33 | Outpatient (BNVA) | payer MEDICAID, SELFPAY | PROVIDERS: Visit Provider Family Medicine | DX: L29.8 Other pruritus (principal); E87.1 Hypo-osmolality and hyponatremia; E87.6 Hypokalemia | CPT/HCPCS: 80048; 83735 ==

== ENCOUNTER → 2022-07-14 15:20 | Outpatient (BNVA) | payer BC, SELFPAY | PROVIDERS: PCP Family Medicine; Visit Provider Family Medicine | DX: E83.42 Hypomagnesemia (principal); E87.1 Hypo-osmolality and hyponatremia; E87.6 Hypokalemia; R79.89 Other specified abnormal findings of blood chemistry | CPT/HCPCS: 80053; 83735; 84439; 84443 ==

== ENCOUNTER 2022-08-30 13:14 | Outpatient (CLI) | payer BC, MEDICAID, SELFPAY ==
--- NOTE | 2022-08-30 13:38 | USCV_ITS ---
Alonzo Goncalves Age: 57 Gender: F : 1965 Exam Date: 08/30/2022 14:02 Ordering Phys: Kami Daniel Technologist: Pamela Crowley Exam Location: [facility] [place] Indication: Assess LV function for ICD BP: 130 / 90 HR: 96 Rhythm: Sinus Technical Quality: Good MEASUREMENTS (Male / Female) Normal Values 2D ECHO LV Diastolic Diameter PLAX 5.9 cm 4.2 - 5.9 / 3.9 - 5.3 cm LV Systolic Diameter PLAX 5.1 cm IVS Diastolic Thickness 0.9 cm 0.6 - 1.0 / 0.6 - 0.9 cm IVS Systolic Thickness 0.9 cm LVPW Diastolic Thickness 1.0 cm 0.6 - 1.0 / 0.6 - 0.9 cm LVPW Systolic Thickness 2.0 cm LVOT Diameter 2.0 cm LV Ejection Fraction 2D Teich 27.6 % LV Ejection Fraction MOD 2C 53.1 % LV Ejection Fraction 2C AL 53.6 % LA Diameter 2.7 cm LA Width 2.9 cm LA Height 4.6 cm RA Width 3.3 cm RA Height 4.9 cm Aorta at Sinotubular Diameter 3.7 cm IVC Diameter 1.1 cm M-MODE MV E Point Septal Separation 1.5 cm FINDINGS Left Ventricle Normal left ventricular cavity size. Moderately decreased left ventricular systolic function. Left ventricular ejection fraction is estimated at 35 %. Moderate global hypokinesis. Right Ventricle Normal right ventricular size and systolic function. Right Atrium Normal right atrial size. Left Atrium Mildly increased left atrial size. Mitral Valve Mildly thickened mitral valve. Aortic Valve Structurally normal trileaflet aortic valve. Tricuspid Valve Structurally normal tricuspid valve. Pulmonic Valve Structurally normal pulmonic valve. Pericardium No pericardial effusion. Aorta Normal size aortic root and proximal ascending aorta. IVC Normal IVC dimension with >50% respiratory change of the inferior vena cava. CONCLUSIONS 1. Normal left ventricular cavity size. Moderately decreased left ventricular systolic function. Left ventricular ejection fraction is estimated at 35%. Moderate global hypokinesis. 2. Normal right ventricular size and systolic function. 3. When compared to previous study dated 05/14/2022, left ventricular systolic function seems to have improved from 20% then. Migdalia Scales MD (Electronically Signed) Final Date: 02 September 2022 16:53 S
== END 2022-08-30 13:15 | disposition home or self-care (01) ==
LOC: RAD 13:15
PROVIDERS: PCP Family Medicine; Visit Provider Nurse Practitioner Family
DX: I50.9 Heart failure, unspecified (principal)
CPT/HCPCS: 93308

== ENCOUNTER → 2022-10-04 09:26 | Outpatient (BNVA) | payer BC, MEDICAID, SELFPAY | PROVIDERS: PCP Family Medicine; Visit Provider Internal Medicine Cardiovascular Disease | DX: I11.0 Hypertensive heart disease with heart failure (principal); I50.9 Heart failure, unspecified; R00.0 Tachycardia, unspecified | CPT/HCPCS: 80048; 83735; 83880 ==

== ENCOUNTER → 2023-01-05 09:38 | Outpatient (BNVA) | payer BC, MEDICAID, SELFPAY | PROVIDERS: PCP Family Medicine; Visit Provider Family Medicine | DX: E83.42 Hypomagnesemia (principal); E87.6 Hypokalemia; E87.1 Hypo-osmolality and hyponatremia; D75.89 Other specified diseases of blood and blood-forming organs | CPT/HCPCS: 80053; 83735; 85025 ==

== ENCOUNTER → 2023-09-01 12:12 | Outpatient (BNVA) | payer BC, MEDICAID, SELFPAY | PROVIDERS: PCP Family Medicine; Visit Provider Internal Medicine Cardiovascular Disease | DX: I10 Essential (primary) hypertension (principal); I50.9 Heart failure, unspecified; R29.818 Other symptoms and signs involving the nervous system; R53.83 Other fatigue; I42.6 Alcoholic cardiomyopathy; K70.10 Alcoholic hepatitis without ascites | CPT/HCPCS: 36415; 80048; 83735; 83880 ==

== ENCOUNTER 2023-09-12 12:48 | Outpatient (CLI) | payer BC, MEDICAID, SELFPAY ==
--- NOTE | 2023-09-12 13:00 | USCV_ITS ---
Alonzo Goncalves Age: 58 Gender: F : 1965 Exam Date: 09/12/2023 13:06 Ordering Phys: Migdalia Scales MD ([email or web address]) Technologist: CT Exam Location: [facility] – [place] Indication: CHF BP: 150 / 87 HR: 80 Rhythm: Sinus Technical Quality: Adequate MEASUREMENTS (Male / Female) Normal Values 2D ECHO LV Chamber Size 4.9 cm RV Chamber Size 3.2 cm LVOT Diameter 2.1 cm LV Ejection Fraction MOD 2C 62.2 % LV Ejection Fraction 2C AL 65.5 % LA Diameter 4.0 cm LA Width 3.5 cm LA Height 4.9 cm RA Width 3.2 cm RA Height 4.5 cm Aorta at Sinotubular Diameter 2.7 cm IVC Diameter 1.5 cm M-MODE Aortic Annulus Diameter 3.9 cm LA Ao Ratio MM 1.1 MV E Point Septal Separation 0.7 cm DOPPLER AV Peak Velocity 130.0 cm/s LVOT Peak Velocity 94.0 cm/s AV Area Cont Eq vti 2.9 cm squared AV Area Cont Eq pk 2.5 cm squared MV Area PHT 3.1 cm squared Mitral E to A Ratio 0.8 MV E' Velocity 32.5 cm/s Mitral E to MV E' Ratio 7.9 Mitral E to LV E' Lateral Ratio 6.9 Mitral E to LV E' Septal Ratio 9.4 TR Peak Velocity 100.0 cm/s TR Peak Gradient 4.0 mmHg TV Peak E Velocity 59.0 cm/s Right Atrial Pressure 3.0 mmHg Pulmonary Artery Systolic Pressu 7.0 mmHg PV Peak Velocity 95.0 cm/s FINDINGS Left Ventricle Normal left ventricular size, systolic function and mildly increased wall thickness, with no regional wall motion abnormalities. Left ventricular ejection fraction is estimated at 65 %. Normal diastolic function. Right Ventricle Normal right ventricular size and systolic function. Right ventricular systolic pressure 7 mmHg. Right Atrium Normal right atrial size. Left Atrium Normal left atrial size. Mitral Valve Mild mitral annular calcification. No mitral valve stenosis. Mild mitral valve regurgitation. Aortic Valve Structurally normal trileaflet aortic valve. No aortic valve stenosis. No aortic valve regurgitation. Tricuspid Valve Structurally normal tricuspid valve. No tricuspid valve stenosis. Trace to mild tricuspid valve regurgitation. Pulmonic Valve Pulmonic valve not well visualized. No pulmonary valve stenosis. No pulmonary valve regurgitation. Pericardium No pericardial effusion. Aorta Normal size aortic root and proximal ascending aorta. IVC Normal IVC dimension with >50% respiratory change of the inferior vena cava. CONCLUSIONS 1. Normal left ventricular size, systolic function and mildly increased wall thickness, with no regional wall motion abnormalities. Left ventricular ejection fraction is estimated at 65 %. Normal diastolic function. 2. Mild mitral valve regurgitation. 3. When compared to study dated 08/30/2022, left ventricular systolic function has improved. Migdalia Scales MD (Electronically Signed) Final Date: 15 September 2023 17:28 S
== END 2023-09-12 12:49 | disposition home or self-care (01) ==
LOC: RAD 12:49
PROVIDERS: PCP Family Medicine; Visit Provider Internal Medicine Cardiovascular Disease
DX: I50.9 Heart failure, unspecified (principal); I34.0 Nonrheumatic mitral (valve) insufficiency
CPT/HCPCS: 93306

== ENCOUNTER 2023-11-08 09:23 | Outpatient (CLI) | payer BC, MEDICAID, SELFPAY ==
--- NOTE | 2023-11-08 09:30 | MM_ITS ---
WS: [email or web address] VIEWS: MLO and CC views both breasts. 3D digital tomosynthesis is also included in this exam. No priors. Baseline study. Findings: There is an area of architectural distortion in the upper outer quadrant of the LEFT breast at mid to anterior depth. No suspicious calcification identified in either breast. The RIGHT breast is unremar kable. Compression spot images with tomography in addition to regional ultrasound of the LEFT breast would be recommended for further work-up. There are scattered areas of fibroglandular density Impression: MM/[place] [id number] BI-RADS: 0-Incomplete: Need additional imaging evaluation FOLLOW-UP: See Report This mammogram was also analyzed by the Computer Aided Detection System R2 Imag e Botany Professor.
== END 2023-11-08 09:24 | disposition home or self-care (01) ==
LOC: MOBLMAM 09:29
PROVIDERS: PCP Family Medicine; Visit Provider Family Medicine
DX: Z12.31 Encounter for screening mammogram for malignant neoplasm of breast (principal)
CPT/HCPCS: 77063; 77067

== ENCOUNTER 2023-12-12 14:20 | Outpatient (CLI) | payer BC, MEDICAID, SELFPAY ==
--- NOTE | 2023-12-12 14:23 | MM_ITS ---
WS: [email or web address] VIEWS: MLO, CC, and ML views of the LEFT breast are obtained.. 3D digital tomosynthesis is also inc luded in this exam. Comparison made with prior exam of screening mammogram performed 11/08/2023.. Findings: There is an area of persistent architectural distortion in the upper outer quadrant of the LEFT breas t at mid depth seen on the compression spot images and tomograms. This area contains both coarse and microcalcification. This abnormality is indeterminate and biopsy should be considered for further wor k-up. Stereotactic biopsy could be performed. There there are scattered areas of fibroglandular densi ty in the LEFT breast. Impression: MM/[place] [id number] BI-RADS: 4-Suspicious Finding-Biopsy Should Be Considered FOLLOW-UP: See Report This mammogram was also analyzed by the Computer Aided Detection System R2 Imag e Fac Engineer.
--- NOTE | 2023-12-12 14:23 | US_ITS ---
WS: [email or web address] Exam: US breast [place] complete [id number] Date/Time of Exam: 12/12/2023 3:33 PM Reason For Exam: Abnormal mammo of the Left Breast The upper outer quadrant of the LEFT breast is targeted for ultrasound evaluation. No discrete mass or suspicious nodule identified in the upper outer quadrant of the LEFT breast with ultrasound. The previously noted abnormality identified on recent mammography is not well demonstrate d with ultrasound. There is continued recommendation of biopsy of the LEFT breast based on mammograph ic findings. IMPRESSION: 1. Of suspicious abnormality in the upper outer quadrant of the LEFT breast described on recent mammo graphy is not identified with ultrasound. There is continued recommendation of biopsy based on mammographic findings. BI-RADS Category 4. Biopsy is recommended. See report.
== END 2023-12-12 14:21 | disposition home or self-care (01) ==
LOC: RAD 14:21
PROVIDERS: PCP Family Medicine; Visit Provider Family Medicine
DX: R92.8 Other abnormal and inconclusive findings on diagnostic imaging of breast (principal)
CPT/HCPCS: 76641; 77061; G0279

== ENCOUNTER 2024-01-10 10:46 | Day surgery (SDC) | payer BC, MEDICAID, SELFPAY ==
[2024-01-10] VITALS (11 sets, daily range): BP systolic 124–180; BP diastolic 61–106; PULSE 75–86; RESP 17–20; TEMP 36.2–36.7; O2SAT 96–100; BMI 27.4
--- NOTE | 2024-01-10 10:58 | MM_ITS ---
WS: [id number] STEREOTACTIC GUIDED LEFT BREAST NEEDLE LOCALIZATION INDICATION: LEFT breast lesion TECHNIQUE: The procedure including risks and evidence of complications were discussed with the patien t who agreed to proceed. Using sterile technique patient is prepped and draped in usual sterile fashi on. Timeout was performed. After 1% lidocaine, using stereotactic guidance, a 9 cm Kopans needle was advanced into the LEFT breast spiculated focal asymmetric density. Needle position was confirmed with digital mammography. No immediate complications. Surgical specimen demonstrates gross total resection of the lesion with intact wire. Pathology is pending. IMPRESSION: 1. Uncomplicated needle localization LEFT breast lesion 2. Pathology demonstrates benign radial scar with florid epithelial hyperplasia. Extensive backgroun d sclerosing adenosis with microcalcifications. Negative for malignancy. 3. Recommend return to annual screening mammography. BI-RADS 2 benign Recommend return to annual screening mammography.
[2024-01-10] MEDS: sodium chloride 0.9% 1,000 ML 30 ML IV (11:10)
--- NOTE | 2024-01-10 11:17 | SUR.PREOP ---
Patient transferred by wheelchair to radiology
--- NOTE | 2024-01-10 12:11 | W.PM.OPSUD ---
Surgery/Procedure H&P Update DATE OF PROCEDURE: January 10, 2024 DATE H&P PERFORMED: 12/28/23 H&P UPDATE INFORMATION: I have reviewed H&P completed within last 30 days, I have examined patient prior to procedure and No changes to prior documentation PLANNED PROCEDURE: Operation Date: 01/10/24 13:00 Proposed Procedures p [id number] left breast lumpectomy [facility] needle insertion and radiologic correlation with Mammo guidance N63.20(Left) - Musa Arana DO
--- NOTE | 2024-01-10 12:15 | SUR.PREOP ---
Patient returned from radiology to preop room
--- NOTE | 2024-01-10 13:47 | ANES.PREANE2 ---
Pre-Anesthetic Assessment Height/Weight: Height 1.63 m Weight 72.575 kg Temp Pulse Resp BP Pulse Ox O2 Del Method 98.0 F 86 20 H 180/106 98 Room Air 01/10/24 11:00 01/10/24 11:00 01/10/24 11:00 01/10/24 11:00 01/10/24 11:00 01/10/24 11:06 Operation Date: 01/10/24 13:00 Proposed Procedures p [id number] left breast lumpectomy [facility] needle insertion and radiologic correlation with Mammo guidance N63.20(Left) - Musa Arana DO Familial anesthetic complications: none Was Beta Juliette taken within 24 hours: Yes Was Clonidine taken within 24 hours: N/A Last intake: Intake Last Liquid Date 01/09/24 Last Liquid Time 21:00 Last Solid Date 01/09/24 Last Solid Time 20:30 Social Tobacco and No alcohol (h/o abuse) Exam alert, oriented x 3 and regular rate & rhythm Airway Submandibular: within normal limits Cervical ROM: within normal limits Mallampati: Class II Dentition: chipped (Multiple) Pulmonary Chronic Obstructive Pulmonary Disease CV/HEM Arrythmia and Hypertension GI Gastroesophageal Reflux Disease Neuropsych Neuropathy Anesthetic Plan ASA status: 3 Anesthesia: General Medications/Allergies Home Medications Medication Instructions Recorded Confirmed Last Taken Type aspirin 81 mg tablet,delayed 81 mg PO DAILY #90 tabs 06/14/22 01/10/24 01/09/24 Rx release cholecalciferol (vitamin D3) 25 1,000 unit PO DAILY #90 caps 06/14/22 01/10/24 01/09/24 08:00 Rx mcg (1,000 unit) capsule multivitamin with folic acid 400 1 tab PO DAILY #90 tabs 06/14/22 01/10/24 01/09/24 08:00 Rx mcg tablet (Thera) thiamine mononitrate (vit B1) 100 100 mg PO DAILY #90 tabs 06/14/22 01/10/24 01/09/24 08:00 Rx mg tablet (Vitamin B-1 (mononitrate)) folic acid 1 mg tablet 1 mg PO DAILY #90 tabs 06/01/23 01/10/24 01/09/24 08:00 Rx pantoprazole 40 mg tablet,delayed 40 mg PO DAILY #90 tabs 06/01/23 01/10/24 01/10/24 Rx release carvedilol 25 mg tablet (Coreg) 25 mg PO BID #180 tabs 09/01/23 01/10/24 01/09/24 18:00 Rx losartan 100 mg tablet 100 mg PO DAILY #90 tabs 09/01/23 01/10/24 01/09/24 08:00 Rx magnesium L-lactate 84 mg 84 mg PO BID #90 tabs 09/13/23 01/10/24 01/09/24 19:00 Rx tablet,extended release (Magtab) spironolactone 25 mg tablet 25 mg PO DAILY #45 tabs 09/13/23 01/10/24 01/09/24 08:00 Rx hydroxyzine HCl 10 mg tablet 20 mg PO BID PRN Itching 01/09/24 01/09/24 Unknown History furosemide 20 mg tablet 20 mg PO DAILY 01/10/24 01/10/24 01/09/24 08:00 History gabapentin 300 mg capsule 300 mg PO BID 01/10/24 01/10/24 01/10/24 History Allergies Allergy/AdvReac Type Severity Reaction Status Date / Time No Known Allergies Allergy Verified 01/10/24 10:57 Current Medications Generic Name Dose Route Start Last Admin Trade Name Freq PRN Reason Stop Dose Admin Sodium Chloride 1,000 mls @ 30 mls/hr 01/10/24 11:00 01/10/24 11:10 Sodium Chloride 0.9% IV 01/11/24 10:59 30 mls/hr .Q24H DRAKE Administration PFSH Anesthesia Medical History Alcoholic cardiomyopathy History of hypertension Surgical History History of right knee surgery Family History Mother Lymphoma Father Hypertension Lung cancer Social History Smoking and tobacco/nicotine status: current every day tobacco/nicotine user Alcohol intake: never Substance/Drug Use: never Female Reproductive History Spontaneous abortions: No Data Anesthesia Cardiac Studies: Echocardiogram 09/12/23 Echocardiogram Limited Views 08/30/22
[2024-01-10] MEDS: ceFAZolin 2,000 mg SDV 2000 MG IVP (14:27)
[2024-01-10] MEDS: lidocaine-epi 2% PF 1:200,000 20 mL SDV XX (14:34)
--- NOTE | 2024-01-10 14:54 | PM.OP ---
Operative Report Date of procedure: January 10, 2024 Pre-op diagnosis: BI-RADS 4 mammographic findings in the left breast Post-op diagnosis: same Procedure done: Left breast lumpectomy Implants: None Specimens removed/disposition: Left breast lumpectomy-short stitch lopez superior, long stitch lopez lateral and wire anterior Surgeon: Musa Arana DO Anesthesia: General and Local Estimated blood loss (mL): 5 Complications: None apparent Brief History: This is a very pleasant 58-year-old female who presented to my office after having mammographic findings in her left breast of BI-RADS 4. There was no palpable mass and it could not be visualized on ultrasound. Left breast lumpectomy with needle insertion and radiologic correlation was indicated. The risk and benefits were explained and documented. Procedure: After wire localization was performed by radiology, the patient was brought back into the operating room. She was placed on the OR table in the supine position. The left breast was inspected prepped and draped in usual sterile fashion. A timeout was performed. All present were in agreement. Next, after localization a 6 cm incision was made over the wire, in the 2 o'clock position. Electrocautery was used to carve out a lumpectomy specimen. The entire needle was included. Dissection was carried down to the iron. Specimen was taken out en bloc. Wire marked anterior. Short stitch marked superior. Long stitch marked lateral. Hemostasis was achieved with electrocautery. Specimen was sent to radiology who said the wire was surrounded by adequate tissue margins. The dermis was approximated with 3-0 Vicryl. The skin was closed with Dermabond. Patient tolerated the procedure well.
--- NOTE | 2024-01-10 17:14 | ANE.PACU2 ---
Inpatient post-anesthesia follow up: Airway intact: Yes Vital signs: Temperature 97.1 F Pulse Rate 83 Respiratory Rate 17 Blood Pressure 164/106 Pulse Oximetry 97 Oxygen Delivery Me thod Room Air Oxygen Flow Rate 6 Fraction of Inspir ed Oxygen Hydration adequate: Yes Nausea and vomiting: No Pain level: 2 Mental status: Baseline
== END 2024-01-10 16:10 | disposition home or self-care (01) ==
PROVIDERS: PCP Family Medicine; Visit Provider Surgery
PROC: (CPT 19120; principal; 2024-01-10 12:50)
DX: N63.21 Unspecified lump in the left breast, upper outer quadrant (principal)
CPT/HCPCS: 19301; 19283; 88307; 88342; C1889; J0690; J1100; J1200; J1885; J2250; J2405; J2704; J3010; J7030

== ENCOUNTER → 2024-01-17 11:51 | Outpatient (BNVA) | payer BC, MEDICAID, SELFPAY | PROVIDERS: PCP Family Medicine; Visit Provider Family Medicine | DX: G62.1 Alcoholic polyneuropathy (principal); R79.89 Other specified abnormal findings of blood chemistry; E83.42 Hypomagnesemia | CPT/HCPCS: 80053; 80061; 82607; 82746; 83540; 83735; 84443; 85025 ==

== ENCOUNTER 2024-02-29 07:57 | Day surgery (SDC) | payer BC, MEDICAID, SELFPAY ==
[2024-02-29 08:12] VITALS: BP 114/76; PULSE 84; RESP 16; TEMP 36.6; O2SAT 100; BMI 27.4
[2024-02-29] MEDS: sodium chloride 0.9% 1,000 ML 30 ML IV (08:16)
--- NOTE | 2024-02-29 08:33 | ANES.PREANE2 ---
Pre-Anesthetic Assessment Height/Weight: Height 1.63 m Weight 72.575 kg Temp Pulse Resp BP Pulse Ox O2 Del Method 97.9 F 84 16 114/76 100 Room Air 02/29/24 08:12 02/29/24 08:12 02/29/24 08:12 02/29/24 08:12 02/29/24 08:12 02/29/24 08:12 Preop Diagnosis: screening Operation Date: 02/29/24 09:15 [place] [address]451 colon G0121 screen colon A risk Z12.11(Not Applicable) - Musa Arana DO Familial anesthetic complications: none Was Beta Juliette taken within 24 hours: Yes Was Clonidine taken within 24 hours: N/A Last intake: Intake Last Liquid Date 02/28/24 Last Liquid Time 20:00 Last Solid Date 02/27/24 Last Solid Time 18:30 Social Alcohol (history) and Tobacco 0.5 pack(s) per day Exam alert, oriented x 3, clear to auscultation bilaterally and regular rate & rhythm Airway Submandibular: within normal limits Cervical ROM: within normal limits Mallampati: Class II Dentition: chipped and full Pulmonary None reported CV/HEM Congestive Heart Failure (65% EF) and Hypertension None reported Hepatic None reported GI Gastroesophageal Reflux Disease Metabolic None reported Musc/skel Osteoarthritis/DJD Neuropsych None reported Anesthetic Plan ASA status: 2 Anesthesia: MAC Risk of > 500 ml blood loss (7ml/kg in children): No Medications/Allergies Home Medications Medication Instructions Recorded Confirmed Last Taken Type aspirin 81 mg tablet,delayed 81 mg PO DAILY #90 tabs 06/14/22 02/29/24 02/28/24 Rx release cholecalciferol (vitamin D3) 25 1,000 unit PO DAILY #90 caps 06/14/22 02/29/24 02/28/24 Rx mcg (1,000 unit) capsule multivitamin with folic acid 400 1 tab PO DAILY #90 tabs 06/14/22 02/27/24 02/27/24 Rx mcg tablet (Thera) thiamine mononitrate (vit B1) 100 100 mg PO DAILY #90 tabs 06/14/22 02/29/24 02/28/24 Rx mg tablet (Vitamin B-1 (mononitrate)) folic acid 1 mg tablet 1 mg PO DAILY #90 tabs 06/01/23 02/29/24 02/28/24 Rx pantoprazole 40 mg tablet,delayed 40 mg PO DAILY #90 tabs 06/01/23 02/29/24 02/28/24 Rx release carvedilol 25 mg tablet (Coreg) 25 mg PO BID #180 tabs 09/01/23 02/29/24 02/29/24 Rx losartan 100 mg tablet 100 mg PO DAILY #90 tabs 09/01/23 02/27/24 02/27/24 Rx hydroxyzine HCl 10 mg tablet 20 mg PO BID PRN Itching 01/09/24 02/27/24 02/27/24 History docusate sodium 100 mg capsule 100 mg PO BID #14 caps 01/10/24 02/29/24 02/28/24 Rx (Colace) hydrocodone 7.5 mg-acetaminophen 1 tab PO Q6H PRN pain #20 tabs 01/10/24 02/29/24 Unknown Rx 325 mg tablet gabapentin 600 mg tablet 600 mg PO BID #180 tabs 01/17/24 02/29/24 02/28/24 Rx furosemide 20 mg tablet 20 mg PO DAILY #90 tabs 02/16/24 02/29/24 02/28/24 Rx spironolactone 25 mg tablet 25 mg PO DAILY #45 tabs 02/16/24 02/29/24 02/28/24 Rx magnesium L-lactate 84 mg 84 mg PO BID #90 tabs 02/22/24 02/27/24 02/27/24 Rx tablet,extended release (Magtab) Allergies Allergy/AdvReac Type Severity Reaction Status Date / Time No Known Allergies Allergy Verified 02/27/24 10:08 Current Medications Generic Name Dose Route Start Last Admin Trade Name Freq PRN Reason Stop Dose Admin Sodium Chloride 1,000 mls @ 30 mls/hr 02/29/24 08:15 02/29/24 08:16 Sodium Chloride 0.9% IV 03/01/24 08:14 30 mls/hr .Q24H DRAKE Administration PFSH Anesthesia Medical History (Updated 01/23/24 @ 08:45 by Musa Arana DO) Alcoholic cardiomyopathy History of hypertension Surgical History (Updated 01/23/24 @ 08:45 by Musa Arana DO) History of lumpectomy of left breast History of right knee surgery Family History Mother Lymphoma Father Hypertension Lung cancer Social History Smoking and tobacco/nicotine status: current every day tobacco/nicotine user cigarettes Packs smoked per day: 0.5 Years cigarettes smoked: 40 Alcohol intake: never Substance/Drug Use: never Female Reproductive History Spontaneous abortions: No Data Anesthesia Cardiac Studies: Echocardiogram 09/12/23 Echocardiogram Limited Views 08/30/22
--- NOTE | 2024-02-29 09:05 | P.HP_ITS ---
Providers/Chief Complaint Primary Care Provider: Sammy Easton DO Chief Complaint: Z12.11 History of Present Illness Alonzo Goncalves is a 58 year old female Review of Systems 2 General: Reports: 10 or more systems reviewed and unremarkable except in HPI and below Medications/Allergies Home Medications Medication Instructions Recorded Confirmed Last Taken Type aspirin 81 mg tablet,delayed 81 mg PO DAILY #90 tabs 06/14/22 02/29/24 02/28/24 Rx release cholecalciferol (vitamin D3) 25 1,000 unit PO DAILY #90 caps 06/14/22 02/29/24 02/28/24 Rx mcg (1,000 unit) capsule multivitamin with folic acid 400 1 tab PO DAILY #90 tabs 06/14/22 02/27/24 02/27/24 Rx mcg tablet (Thera) thiamine mononitrate (vit B1) 100 100 mg PO DAILY #90 tabs 06/14/22 02/29/24 02/28/24 Rx mg tablet (Vitamin B-1 (mononitrate)) folic acid 1 mg tablet 1 mg PO DAILY #90 tabs 06/01/23 02/29/24 02/28/24 Rx pantoprazole 40 mg tablet,delayed 40 mg PO DAILY #90 tabs 06/01/23 02/29/24 02/28/24 Rx release carvedilol 25 mg tablet (Coreg) 25 mg PO BID #180 tabs 09/01/23 02/29/24 02/29/24 Rx losartan 100 mg tablet 100 mg PO DAILY #90 tabs 09/01/23 02/27/24 02/27/24 Rx hydroxyzine HCl 10 mg tablet 20 mg PO BID PRN Itching 01/09/24 02/27/24 02/27/24 History docusate sodium 100 mg capsule 100 mg PO BID #14 caps 01/10/24 02/29/24 02/28/24 Rx (Colace) hydrocodone 7.5 mg-acetaminophen 1 tab PO Q6H PRN pain #20 tabs 01/10/24 02/29/24 Unknown Rx 325 mg tablet gabapentin 600 mg tablet 600 mg PO BID #180 tabs 01/17/24 02/29/24 02/28/24 Rx furosemide 20 mg tablet 20 mg PO DAILY #90 tabs 02/16/24 02/29/24 02/28/24 Rx spironolactone 25 mg tablet 25 mg PO DAILY #45 tabs 02/16/24 02/29/24 02/28/24 Rx magnesium L-lactate 84 mg 84 mg PO BID #90 tabs 02/22/24 02/27/24 02/27/24 Rx tablet,extended release (Magtab) Allergies Allergy/AdvReac Type Severity Reaction Status Date / Time No Known Allergies Allergy Verified 02/27/24 10:08 PFSH Acute PFSH: Medical History (Updated 01/23/24 @ 08:45 by Musa Arana DO) Alcoholic cardiomyopathy History of hypertension Surgical History (Updated 01/23/24 @ 08:45 by Musa Arana DO) History of lumpectomy of left breast History of right knee surgery Family History Mother Lymphoma Father Hypertension Lung cancer Social History Smoking and tobacco/nicotine status: current every day tobacco/nicotine user cigarettes Packs smoked per day: 0.5 Years cigarettes smoked: 40 Alcohol intake: never Substance/Drug Use: never Female Reproductive History: Spontaneous abortions: No Vitals/I&O/Wt Last Vital Signs Temp 97.9 F 02/29/24 08:12 Pulse 84 02/29/24 08:12 Resp 16 02/29/24 08:12 BP 114/76 02/29/24 08:12 Pulse Ox 100 02/29/24 08:12 O2 Del Method Room Air 02/29/24 08:12 Weight last 48 hrs Weight 160 lb A&P Assessment and plan (1) Colon cancer screening: Plan Colonoscopy Attestations Medical Necessity Statement*: Home Coding Level of Care Code Acute Code for Chg Fwd Diagnoses Colon cancer screening Z12.11
[2024-02-29 09:28] VITALS: BP 125/77; PULSE 79; RESP 16; O2SAT 96
[2024-02-29 09:40] VITALS: BP 107/85; PULSE 82; RESP 18; O2SAT 97
[2024-02-29 09:51] VITALS: BP 124/81; PULSE 76; RESP 18; O2SAT 97
--- NOTE | 2024-02-29 10:06 | ANE.PACU2 ---
Inpatient post-anesthesia follow up: Airway intact: Yes Vital signs: Temperature 97.9 F Pulse Rate 76 Respiratory Rate 18 Blood Pressure 124/81 Pulse Oximetry 97 Oxygen Delivery Me thod Room Air Oxygen Flow Rate Fraction of Inspir ed Oxygen Hydration adequate: Yes Nausea and vomiting: No Pain level: 1 Mental status: Baseline
== END 2024-02-29 10:12 | disposition home or self-care (01) ==
PROVIDERS: PCP Family Medicine; Visit Provider Surgery
PROC: 0DJD8ZZ Inspection of Lower Intestinal Tract, Via Natural or Artificial Opening Endoscopic (ICD-10-PCS; CPT 45378; principal; 2024-02-29 09:15)
DX: Z12.11 Encounter for screening for malignant neoplasm of colon (principal); K57.30 Diverticulosis of large intestine without perforation or abscess without bleeding; D12.5 Benign neoplasm of sigmoid colon; D12.8 Benign neoplasm of rectum; F17.210 Nicotine dependence, cigarettes, uncomplicated; I11.0 Hypertensive heart disease with heart failure; I50.9 Heart failure, unspecified; M19.90 Unspecified osteoarthritis, unspecified site
CPT/HCPCS: 45385; 88305; J2704; J7030

== ENCOUNTER 2024-07-27 10:13 | Outpatient (CLI) | payer BC, MEDICAID, SELFPAY ==
--- NOTE | 2024-07-27 10:20 | XR_ITS ---
WS: [id number] Exam: XR hip BI 2V wo/w pel [id number] Date/Time of Exam: 07/27/2024 10:29 AM Reason For Exam: BILATERAL HIP JOINT PAIN There is moderately advanced degenerative change of both hips with near [id number] articulation. Pr ominent osteophytes project from the RIGHT superior acetabulum. No fractures. The pelvis is intact. XR/XR hip BI 2V wo/w pel [id number] IMPRESSION: 1. Bilaterally symmetrical moderately advanced degenerative change of both hips with near [id number] articulation. 2. No fracture identified.
== END 2024-07-27 10:14 | disposition home or self-care (01) ==
LOC: RAD 10:18
PROVIDERS: PCP Family Medicine; Visit Provider Family Medicine
DX: M16.0 Bilateral primary osteoarthritis of hip (principal)
CPT/HCPCS: 73521

== ENCOUNTER → 2024-08-20 14:50 | Outpatient (BNVA) | payer BC, MEDICAID, SELFPAY | PROVIDERS: PCP Family Medicine; Visit Provider Nurse Practitioner | DX: M25.552 Pain in left hip (principal); M25.551 Pain in right hip | CPT/HCPCS: 73523 ==

== ENCOUNTER → 2024-08-31 09:14 | Outpatient (BNVA) | payer BC, MEDICAID, SELFPAY | PROVIDERS: PCP Family Medicine; Visit Provider Specialist | DX: M16.0 Bilateral primary osteoarthritis of hip (principal) | CPT/HCPCS: 77002 ==

== ENCOUNTER → 2024-10-04 10:45 | Outpatient (BNVA) | payer BC, MEDICAID, SELFPAY | PROVIDERS: PCP Family Medicine; Visit Provider Internal Medicine Cardiovascular Disease | DX: R06.02 Shortness of breath (principal) | CPT/HCPCS: 36415; 80048; 83880 ==

== ENCOUNTER → 2025-01-07 10:34 | Outpatient (BNVA) | payer BC, MEDICAID, SELFPAY | PROVIDERS: PCP Family Medicine; Visit Provider Specialist | DX: M16.0 Bilateral primary osteoarthritis of hip (principal) | CPT/HCPCS: 73523 ==

== ENCOUNTER 2025-01-23 08:00 | Outpatient (CLI) | payer BC, MEDICAID, SELFPAY ==
--- NOTE | 2025-01-23 08:08 | XRR_ITS ---
PROCEDURE INFORMATION: Exam: XR Lumbosacral Spine Exam date and time: 01/23/2025 8:17 AM Age: 59 years old Clinical indication: Low back pain; Unspecified hip and lower back pain TECHNIQUE: Imaging protocol: Radiologic exam of the lumbosacral spine. Views: 6 or more views. Including flexion and extension views. COMPARISON: CR XR hip BI m 5V wo/w pel* [id number] 01/07/2025 10:35 AM FINDINGS: Bones/joints: There is no fracture or facet subluxation. anterolisthesis of L4 on L5 vertebral body measuring 9 mm is seen. anterolisthesis of L5 on S1 vertebral body proximally 9 mm is seen.This is stable on both flexion and extension view. Facet hypertrophy changes are seen at the L4-L5 and L5-S1 levels. Soft tissues: Unremarkable. Vasculature: Diffuse calcified atherosclerotic changes seen in the abdominal aorta. XR/XR lumbar spine 6V w f/e [id number] IMPRESSION: 1. Anterolisthesis of L4 on L5 vertebral body measuring 9 mm is seen. Anterolisthesis of L5 on S1 vertebral body proximally 9 mm is seen. This is stable on both flexion and extension view. 2. Facet hypertrophy changes are seen at the L4-L5 and L5-S1 levels.
== END 2025-01-23 08:01 | disposition home or self-care (01) ==
LOC: RAD 08:04
PROVIDERS: PCP Family Medicine; Visit Provider Family Medicine
DX: M43.16 Spondylolisthesis, lumbar region (principal); R93.7 Abnormal findings on diagnostic imaging of other parts of musculoskeletal system; I70.0 Atherosclerosis of aorta
CPT/HCPCS: 72114

== ENCOUNTER 2025-02-07 08:25 | Outpatient (CLI) | payer BC, MEDICAID, SELFPAY ==
--- NOTE | 2025-02-07 08:27 | MR_ITS ---
WS: [id number] MRI LUMBAR SPINE NONCONTRAST TECHNIQUE: Sagittal T1, T2 and STIR imaging. Axial T1 and T2 imaging. CLINICAL INFORMATION: ACQUIRED LUMBAR SPONDYLOLISTHESIS/LOW BACK PAIN COMPARISON: None. FINDINGS: Chronic spondylolysis L5-S1 with grade 1 anterolisthesis measuring 9.8 mm. Slight anterolisthesis L4 on L5. L1-L2: Mild annular bulging. Slight narrowing the LEFT subarticular recess. Mild facet arthropathy. L2-L3: Mild annular bulging. Slight narrowing of the subarticular recess bilaterally. Mild facet arthropathy. Foramen are patent. L3-L4: Mild annular bulging with slight impingement on the traversing L4 nerve roots bilaterally. Mild LEFT foraminal narrowing. Moderate facet arthropathy. L4-L5: Slight grade 1 anterolisthesis. Moderate central canal stenosis with impingement of traversing L5 nerve roots. Advanced facet arthropathy with facet effusions. Small LEFT lateral synovial cyst slightly encroaches on the far exiting LEFT L4 nerve root. Mild bilateral foraminal narrowing. L5-S1: Chronic spondylolysis with 9.8 mm anterolisthesis. Moderate to severe central canal stenosis with impingement of traversing S1 nerve roots. Advanced facet arthropathy. Moderate to severe LEFT greater than RIGHT foraminal narrowing. Visualized pelvic bony structures: Normal. Paravertebral soft tissues: Normal. Tiny RIGHT renal cyst. MR/MR lumbar spine wo con* [id number] IMPRESSION: 1. Chronic spondylolysis L5-S1 with grade 1 anterolisthesis. 2. Moderate to severe central canal stenosis L5-S1 with moderate to severe LEF T greater than RIGHT bony foraminal narrowing. 3. Moderate central canal stenosis L4-5 with slight anterolisthesis. 4. Advanced facet arthropathy L4-L5 and L5-S1.
== END 2025-02-07 08:26 | disposition home or self-care (01) ==
LOC: RAD 08:26
PROVIDERS: PCP Family Medicine; Visit Provider Family Medicine
DX: M43.16 Spondylolisthesis, lumbar region (principal); R93.7 Abnormal findings on diagnostic imaging of other parts of musculoskeletal system; M48.07 Spinal stenosis, lumbosacral region; M48.061 Spinal stenosis, lumbar region without neurogenic claudication; M47.896 Other spondylosis, lumbar region; M47.897 Other spondylosis, lumbosacral region; M51.369 Other intervertebral disc degeneration, lumbar region without mention of lumbar back pain or lower extremity pain; M25.48 Effusion, other site; M71.38 Other bursal cyst, other site
CPT/HCPCS: 72148

== ENCOUNTER → 2025-02-26 14:27 | Outpatient (BNVA) | payer BC, MEDICAID, SELFPAY | PROVIDERS: PCP Family Medicine; Visit Provider Orthopaedic Surgery | DX: M54.9 Dorsalgia, unspecified (principal) | CPT/HCPCS: 72110 ==

== ENCOUNTER → 2025-06-11 15:36 | Outpatient (BNVA) | payer BC, MEDICAID, SELFPAY | PROVIDERS: PCP Family Medicine; Visit Provider Orthopaedic Surgery | DX: M54.16 Radiculopathy, lumbar region (principal); G89.29 Other chronic pain; M43.17 Spondylolisthesis, lumbosacral region | CPT/HCPCS: 36415; 80053; 81001; 85025 ==

== ENCOUNTER → 2025-06-21 11:29 | Outpatient (BNVA) | payer BC, MEDICAID, SELFPAY | PROVIDERS: PCP Family Medicine; Visit Provider Family Medicine | DX: Z01.818 Encounter for other preprocedural examination (principal) | CPT/HCPCS: 93005 ==

== ENCOUNTER 2025-07-01 16:29 | Inpatient (IN) | payer BC, MEDICAID, SELFPAY ==
[2025-07-01] VITALS (21 sets, daily range): BP systolic 124–179; BP diastolic 64–104; PULSE 74–87; RESP 12–23; TEMP 36.1–36.8; O2SAT 93–100; BMI 21.8
--- NOTE | 2025-07-01 08:57 | ANES.PREANE2 ---
Pre-Anesthetic Assessment Height/Weight: Height 1.63 m Weight 57.606 kg Temp Pulse Resp BP Pulse Ox O2 Del Method 97.5 F L 80 16 172/104 98 Room Air 07/01/25 07:58 07/01/25 07:58 07/01/25 07:58 07/01/25 07:58 07/01/25 07:58 07/01/25 08:07 Preop Diagnosis: Lumbar stenosis with neurogenic claudication Operation Date: 07/01/25 09:20 Proposed Procedures p Spinal Fusion PSF(Not Applicable) - DO donnie Ramirez Lumbopelvic Fixation(Not Applicable) - Paul Luong DO s Sacroiliac Joint Fusion SI Joint Fusion(Not Applicable) - DO donnie Ramirez Lumbar Spine Decompression Lumbar Decompression(Not Applicable) - Paul Luong DO Familial anesthetic complications: None Was Beta Juliette taken within 24 hours: N/A Was Clonidine taken within 24 hours: N/A Last intake: Intake Last Liquid Date 06/30/25 Last Liquid Time 22:00 Last Solid Date 06/30/25 Last Solid Time 22:45 Social No alcohol and No tobacco form etoh Exam alert, oriented x 3, clear to auscultation bilaterally and regular rate & rhythm Airway Mallampati: Class I Dentition: false CV/HEM Congestive Heart Failure and Hypertension GI Gastroesophageal Reflux Disease Metabolic Hyperlipidemia Anesthetic Plan ASA status: 3 Anesthesia: General Risk of > 500 ml blood loss (7ml/kg in children): No Medications/Allergies Home Medications ?Medication ?Instructions ?Recorded ?Confirmed ?Last Taken ?Type aspirin 81 mg tablet,delayed 81 mg PO DAILY #90 tabs 06/14/22 06/27/25 06/25/25 Rx release cholecalciferol (vitamin D3) 25 1,000 unit PO DAILY #90 caps 06/14/22 06/27/25 06/27/25 Rx mcg (1,000 unit) capsule multivitamin with folic acid 400 1 tab PO DAILY #90 tabs 06/14/22 06/27/25 06/21/25 Rx mcg tablet (Thera) thiamine mononitrate (vit B1) 100 100 mg PO DAILY #90 tabs 06/14/22 06/27/25 06/27/25 Rx mg tablet (Vitamin B-1 (mononitrate)) spironolactone 25 mg tablet 25 mg PO DAILY #45 tabs 02/16/24 06/27/25 06/27/25 Rx losartan 100 mg tablet 100 mg PO DAILY #90 tabs 08/13/24 06/27/25 06/27/25 Rx atorvastatin 20 mg tablet 20 mg PO DAILY 10/04/24 06/27/25 06/27/25 History furosemide 20 mg tablet 20 mg PO DAILY #90 tabs 01/10/25 06/27/25 06/27/25 Rx carvedilol 25 mg tablet (Coreg) 25 mg PO BID #180 tabs 01/29/25 06/27/25 07/01/25 Rx gabapentin 400 mg capsule 400 mg PO TID 06/21/25 06/27/25 06/27/25 History Bone Growth Stimulator #1 ea 06/26/25 Unknown Rx folic acid 1 mg tablet 1 mg PO DAILY 06/27/25 06/27/25 06/27/25 History hydroxyzine HCl 10 mg tablet 10 mg PO DAILY PRN Itching 06/27/25 06/27/25 06/27/25 History magnesium L-lactate 84 mg 84 mg PO BID 06/27/25 06/27/25 06/27/25 History tablet,extended release (Magtab) pantoprazole 40 mg tablet,delayed 40 mg PO DAILY 06/27/25 06/27/25 07/01/25 History release Allergies Allergy/AdvReac Type Severity Reaction Status Date / Time No Known Allergies Allergy Verified 06/21/25 11:58 Current Medications Generic Name Dose Route Start Last Admin Trade Name Freq PRN Reason Stop Dose Admin Sodium Chloride 1,000 mls @ 30 mls/hr 07/01/25 07:45 07/01/25 08:30 Sodium Chloride 0.9% IV 07/02/25 07:44 30 mls/hr .Q24H DRAKE Administration PFSH Anesthesia Medical History Bilateral primary osteoarthritis of hip Tubulovillous adenoma of colon Alcoholic cardiomyopathy History of hypertension Surgical History History of lumpectomy of left breast History of right knee surgery Family History Mother Lymphoma Father Hypertension Lung cancer Social History Smoking and tobacco/nicotine status: current every day tobacco/nicotine user cigarettes Packs smoked per day: 0.5 Years cigarettes smoked: 40 Alcohol intake: never Substance/Drug Use: never Female Reproductive History Spontaneous abortions: No Data Anesthesia Cardiac Studies: Echocardiogram 09/12/23 Echocardiogram Limited Views 08/30/22
--- NOTE | 2025-07-01 09:19 | W.PM.OPSUD ---
Surgery/Procedure H&P Update DATE OF PROCEDURE: July 01, 2025 DATE H&P PERFORMED: 06/11/25 H&P UPDATE INFORMATION: I have reviewed H&P completed within last 30 days, I have examined patient prior to procedure and No changes to prior documentation PREOP DIAGNOSIS: Lumbar stenosis with neurogenic claudication PLANNED PROCEDURE: Operation Date: 07/01/25 09:20 Proposed Procedures p Spinal Fusion PSF(Not Applicable) - Paul Luong DO s Lumbopelvic Fixation(Not Applicable) - Paul Luong DO s Sacroiliac Joint Fusion SI Joint Fusion(Not Applicable) - DO donnie Ramirez Lumbar Spine Decompression Lumbar Decompression(Not Applicable) - Paul Luong DO
[2025-07-01] MEDS: ceFAZolin 2,000 mg SDV 2000 MG IVP ×2 (09:50→17:25)
[2025-07-01] MEDS: lidocaine-epi 1% 20 mL INJ INJECTION (10:29)
[2025-07-01] MEDS: tobramycin 40 mg/mL SDV 2mL 120 MG XX (11:13)
--- NOTE | 2025-07-01 13:34 | XR_ITS ---
WS: [id number] XR lumbar spine 2-3V* [id number] REASON FOR EXAM: JOSE LUIS PICS FINDINGS: Posterior decompression. Pedicle screws L3-S1. Oblique tendon screws at S2. Interconnecting rods from L3-S2. The surgical appliances are intact and in proper position and alignment. There is a moderate anterolisthesis of L5 on S1 which is unchanged compared to 02/26/2025. XR/XR lumbar spine 2-3V* [id number] IMPRESSION: Posterior lumbar fusion as above.
--- NOTE | 2025-07-01 14:26 | P.OP_ITS ---
Operative Report Date of procedure: July 01, 2025 Pre-op diagnosis: Lumbar stenosis with neurogenic claudication L4-5 spondylolisthesis L5-S1 spondylolisthesis Post-op diagnosis: same Procedure done: 1. L3 to pelvis posterior spine fusion 2. L3 to S1 posterior spine instrumentation 3. Lumbopelvic instrumentation 4. Right open SI fusion 5. Left open SI fusion 6. L4-L5 laminectomy with partial facetectomies 7. L5-S1 laminectomy with partial facetectomies 8. Use of computer navigation/stereotactic for the spine 9. Bone marrow aspirate from right iliac crest 10. Use of autograft from same incision 11. Use of allograft Surgeon: Paul Luong DO Estimated blood loss (mL): 150 Procedure: 1. L3 to pelvis posterior spine fusion 2. L3 to S1 posterior spine instrumentation 3. Lumbopelvic instrumentation 4. Right open SI fusion 5. Left open SI fusion 6. L4-L5 laminectomy with partial facetectomies 7. L5-S1 laminectomy with partial facetectomies 8. Use of computer navigation/stereotactic for the spine 9. Bone marrow aspirate from right iliac crest 10. Use of autograft from same incision 11. Use of allograft Patient brought to the operative suite after undergoing anesthesia was placed in the prone position. All areas impingement well-padded. Patient is prepped and draped in normal sterile fashion. Skin incisions made using the previous skin incision extending slightly above and below. The thoracolumbar fascia was split and subperiosteal dissection was made out to the transverse process of L3 down to L5 bilaterally as well as the sacral ala bilaterally. Sacrum and SI joints were dissected out as well. Next attention was brought to placing the fiducial for the C-arm. This is going to be used for the computer navigation. 2 pins were placed into the right iliac crest which were later moved to the end of the case. The fiducial was attached. C-arm was brought in and then spun around the patient. The information from serum was then later used after is loaded the computer for the placement of pedicle screws. Next attention was brought to placing the pedicle screws. This was done at L3 bilaterally, L4 bilaterally, L5 bilaterally And S1 bilaterally. The computer navigated awl was inserted into the pedicle. Followed by the pedicle feeler. Followed by placement of the screws using the computer navigation. At all these levels. Next attention was placing the iliac screws. This was done using the computer navigated awl. This is placed through the ala across the SI joint into the iliac crest. Then followed by the pedicle feeler. Followed by computer navigated tap. 80 mm 9.5 millimeter pedicle screws were then placed into the iliac crest. This was done bilaterally. A 80 mm screw was placed on the left side. Next attention was brought to the open SI joint fusions. This was done by using the computer navigated awl crossing the SI joint. Through direct visualization as well. The pedicle feeler was used to make sure was crossed no breaches. The canal was then filled with bone graft. And then a computer navigated SI joint fusion screws placed across the SI joint. This process was done on both the right and the left side. Once all the screws were placed attention was then brought to doing the laminec yon at L4/5. At this point the spinous process was taken down at L4/5. High- speed bur was used to take down the laminectomy. The facet joints were also taken down using the high-speed bur burring completely out so that the L4 nerves were identified. The facet was taken down and the medial aspect of the facet up to the pedicle was taken down bilaterally of the L5 pedicle. Using Kerrison rongeur. Ligamentum flavum was taken down as far as the kidney there was scarring. However the dura was completely opened and felt to be adequately decompressed. The L5 nerves were traced around the L5 pedicle out where the foramen was in the L5 nerves were traced around the L5 pedicles. Laminectomy was performed at L5 at the L 5/S1 level. Lamina was taken down with a high-speed bur medial aspect of facet joints were taken down the high-speed bur curved. Kerrison we reviewed used to remove the remaining bone. The ligament plate was taken down from L 5/1. The L5 nerve roots were traced out the L 5/1 foramen and the S1 nerve was traced around the S1 pedicles bilaterally. The dura fluid up to the top there is significant stenosis at this level and significant thickening of the ligamentum flavum. Wounds were then irrigated. The lyndsey was then attached bilaterally from L3, L4, L5, S1 and into the iliac screw completing the lumbopelvic fixation. The screw caps were then torqued into position. This was done bilaterally. Next attention was brought to decorticating the transverse processes offrom L3 down to L5 bilaterally and sacral ala bilaterally as well as the SI joints. Osteoamp bone graft was then packed into the gutters. And across the SI joint. Vancomycin and tobramycin were placed into calcium sulfate beads. These were placed and a deep drain was placed and wound was closed in layered fashion with Vicryl and Monocryl. Sterile dressings were applied patient was transferred to the PACU in stable condition.
[2025-07-01] MEDS: fentaNYL 50 mcg/mL INJ 2mL IVP (14:37)
[2025-07-01] MEDS: HYDROcodone-acetaminophen 5-325 mg Tablet PO ×2 (15:28→19:56)
[2025-07-01] MEDS: labetalol 5 mg/mL SDV 20mL IVP (15:55)
--- NOTE | 2025-07-01 16:12 | PC.NURSE ---
1600 Dr. Arshad notified of elevated BP. Orders received for labetolol 5 mg.
--- NOTE | 2025-07-01 17:00 | ANE.PACU2 ---
Inpatient post-anesthesia follow up: Airway intact: Yes Vital signs: Temperature 978.8 F Pulse Rate 90 Respiratory Rate 16 Blood Pressure 108/58 Pulse Oximetry 94 Oxygen Delivery Me thod Room Air Oxygen Flow Rate Fraction of Inspir ed Oxygen Hydration adequate: Yes Nausea and vomiting: No Pain level: 1 Mental status: Baseline
[2025-07-02] MEDS: HYDROcodone-acetaminophen 5-325 mg Tablet PO ×3 (00:31→10:59)
[2025-07-02] MEDS: ceFAZolin 2,000 mg SDV 2000 MG IVP ×2 (02:42→09:31)
[2025-07-02 03:30] VITALS: BP 152/82; PULSE 88; RESP 17; TEMP 36.8; O2SAT 96
[2025-07-02 07:35] VITALS: BP 108/68; PULSE 98; RESP 18; TEMP 36.6; O2SAT 94
[2025-07-02 08:00] VITALS: BP 108/58; PULSE 90; RESP 16; TEMP 36.6; O2SAT 94
--- NOTE | 2025-07-02 08:52 | PM.DCS ---
Discharge Providers Date of Admission: 07/01/25 16:29 Date of Discharge: July 02, 2025 Attending Provider at Admission: Paul Luong DO Attending Provider at Discharge: Paul Luong DO Primary Care Provider: Stephanie Shankar DO Reason for Visit Reason for Visit: M54.16 Physical Exam Narrative: Patient doing well pain controlled minimal drainage at the drain. She has been up walking. Urinary Catheter Management: Jasmine: Cath Placed During This Visit: yes, but has since been removed by the nurse Reason for Continuing Indwelling Catheter: Decision to DC Catheter Urinary Catheter Date of Insertion: 07/01/25 Urinary Catheter Time of Insertion: 10:00 Date Urinary Catheter Removed: 07/02/25 Time Urinary Catheter Discontinued: 05:50 Discharge Data Studies Completed and Pending Completed Studies During Hospitalization Category Date Time Status XR lumbar spine 2-3V* [id number] Routine Exams 07/01/25 13:34 Completed Radiology Impressions Lumbar Spine X-Ray 07/01/25 13:34 IMPRESSION: Posterior lumbar fusion as above. Laboratory Results Blood Type A Positive 07/01/25 08:45 Rho(D) Type Rh positive 07/01/25 08:45 Antibody Screen Negative 07/01/25 08:45 Vitals Last Vital Signs Temp 978.8 F H 07/02/25 08:00 Pulse 90 07/02/25 08:00 Resp 16 07/02/25 08:00 BP 108/58 07/02/25 08:00 Pulse Ox 94 07/02/25 08:00 O2 Del Method Room Air 07/02/25 08:00 Discharge Plan Discharge Patient Disposition: Home Condition: Stable Prescriptions: New hydrocodone-acetaminophen 5-325 mg tablet 1 - 2 tab PO .Q4-6H Qty: 40 0RF Continued gabapentin 400 mg capsule 400 mg PO TID Rx Instructions: 1 cap qam, 1 cap in afternoon, 2 cap qpm cholecalciferol (vitamin D3) 25 mcg (1,000 unit) capsule 1,000 unit PO DAILY Qty: 90 3RF Vitamin B-1 (mononitrate) 100 mg tablet 100 mg PO DAILY Qty: 90 3RF Thera 400 mcg tablet 1 tab PO DAILY Qty: 90 3RF atorvastatin 20 mg tablet 20 mg PO DAILY spironolactone 25 mg tablet 25 mg PO DAILY Qty: 45 3RF losartan 100 mg tablet 100 mg PO DAILY Qty: 90 3RF furosemide 20 mg tablet 20 mg PO DAILY Qty: 90 3RF Rx Instructions: TAKE ONE TABLET BY MOUTH DAILY AT 8:00AM carvedilol [Coreg] 25 mg tablet 25 mg PO BID Qty: 180 2RF Rx Instructions: must administer with a meal/food (DME) Bone Growth Stimulator See Rx Instructions .Route .MEDSUPPLY Qty: 1 0RF Rx Instructions: As directed folic acid 1 mg tablet 1 mg PO DAILY Rx Instructions: TAKE ONE TABLET BY MOUTH DAILY pantoprazole 40 mg tablet,delayed release (DR/EC) 40 mg PO DAILY Rx Instructions: TAKE ONE TABLET BY MOUTH DAILY hydroxyzine HCl 10 mg tablet 10 mg PO DAILY PRN (Reason: Itching) Rx Instructions: TAKE ONE TABLET BY MOUTH DAILY NEEDED FOR ITCHING magnesium L-lactate [Magtab] 84 mg tablet extended release 84 mg PO BID Rx Instructions: TAKE ONE TABLET BY MOUTH TWICE DAILY Held aspirin 81 mg tablet,delayed release (DR/EC) 81 mg PO DAILY Qty: 90 0RF Hold Instructions: Resume on 07/03/25. Discharge Diet: Advance as tolerated Discharge Activity: Limit activity as instructed Patient Instructions: Acute Wound Care (DC), Opioid Safety, Post Anesthesia Care, Patient Portal & [place] Instructions Activity Restrictions/Additional Instructions: Thank you for [facility] for your care! The following is a list of instructions, from your provider, to follow upon your discharge to ensure you have the optimal recovery from your recent injury orsurgery. Follow-up care is a stokes part of your treatment and safety. Be sure to make and go to all appointments, and call your doctor if you are having problems. If you do not already have a follow-up appointment made, call Dr. Luong office in the next 1-3 days to make follow up appointment for 1 weeks at [phone]. It is also a good idea to know your test results and keep a list of the medicines you take. Medications will be prescribed for you at your provider's discretion. These medications are to be used as instructed; if they are taken more often that prescribed they will not be refilled early and in most cases will not be refilled at all. > When a refill is needed,you should contact adelina landaverde 2-3 business days before your prescription runs out. Medications will NOT be refilled by data operations leader providers after hours! > Many pain medications contain Tylenol (Acetaminophen). Do not consume more than 4,000 mg of Tylenol per day in total with any combination ofmedications. > Pain medications can cause constipation. Please use an over the counter stool softener as directed, while taking pain medications. Consulty our local pharmacist with questions or recommendations on stool softeners. If constipation persists, contact our office or your primary care provider. > While under our care,you are not to receive pain medications or other controlled substances from any other provider unless our office is notified and approves. Any attempts to do so will result in refusal to prescribe any further pain medications and possible dismissal from our practice. ? Keep dressing on until seen in clinic in 1 week ? Showering is permitted, however we ask that you do not take a bath, sit in a whirlpool / Jacuzzi, or go swimming for 1 month. For only the first 2 days after surgery, lt wilt be necessary for you to cover your wound/dressing with plastic and tape to keep it dry. ? Walking is essential for the healing process after surgery. We would like you to slowly advance your walking. This should be done on relatively flat clear ground (inside or out) or can be done on a treadmill. Remember this goal does not have to happen all at once, slowly increase your distance and duration. This can be broken into more more than one walk per day as tolerated. Patients who walk as directed after surgery rarely require Physical Therapy. In the unlikely event this issue arises your provider will direct hospital staff to make the appropriate arrangements. ? No lifting over 5 pounds {a gallon of milk) or bending/twisting until further notice. Each of these activities places an unnecessary amount of stress onto the body and can impede the delicate healing process. > Instead of bending at the waist, keep your back straight and bend at the knees. > Instead of twisting your torso, keep your back straight and turn your entire body with your feet. ? You may sleep in any position which makes you comfortable. Many patients find comfort sleeping in a reclining chair. It is not abnormal to have difficulty sleeping for the first several weeks following your surgery. We recommend trying Benadry! or Tylenol PM as directed to help with your sleeping difficulties. Both medications are over the counter and available withoutprescription. ? NO SMOKING!!! Smoking dramatically increases the probability of developing postoperative wound infections. ? Common complaints after lumbar and/or thoracic spine surgery include, but are not limited to: numbness and/or tingling in the legs, pain around the incision and surrounding tissues, muscle spasms, or stiffness of the middle to low back. Contact our office if these symptoms persist or if an acute change occurs. ? No driving for the first 3-5days, and not while taking narcotics [] until seen at your follow-up appointment and cleared. There are no restrictions for riding on short trips, however if you take a longer trip, arrangements should be made to make regular stops to get out of the vehicle and stretch . ? Swelling is an unfortunate event that will take place with any surgery and is the primary source of your postoperative discomfort. While walking and regular approved activities helps control inflammation, there are additional steps you can take to minimizeswelling. > Place ice over the surgical site and surrounding tissue for twenty minutes, followed by applying a low/medium heat (heating pad) for an additional twenty minutes every 1-2 hours as needed for painrelief. > You may use of over the counter anti-inflammatory medications (Ibuprofen, Motrin, Aleve, Advil, etc) as directed on the package label. These types of medicines wm significantly reduce the amount of discomfort you experience after surgery from swelling. It should be noted that if you have and allergy to any of these medications, or a history of ulcers or kidney disease you should consult you primary care provider prior to starting these medications. Discharge Attestations Time Spent in Discharge Care*: less than 30 min Quality Metrics Clinical Quality Measures [ No reported AMI, CVA or VTE this stay] Coding Level of Care Code Acute Code for Chg Fwd
[2025-07-02 09:31] VITALS: BP 108/58
[2025-07-02] MEDS: multivitamin therapeutic Tablet 1 TAB PO (09:31)
[2025-07-02] MEDS: ATORVASTATIN 10 MG TABLET 20 MG PO (09:31)
[2025-07-02 11:47] VITALS: BP 108/58; PULSE 90; RESP 16; TEMP 36.6; O2SAT 95
--- NOTE | 2025-07-02 11:50 | PC.NURSE ---
Hemovac removed at 0945 per order. All IVs removed and all questions answered.
== END 2025-07-02 11:50 | disposition home or self-care (01) | DRG 448 ==
LOC: MEDSURG 16:29
PROVIDERS: Admitting Provider Orthopaedic Surgery; PCP Family Medicine; Visit Provider Orthopaedic Surgery
PROC: 0SG1071 Fusion of 2 or more Lumbar Vertebral Joints with Autologous Tissue Substitute, Posterior Approach, Posterior Column, Open Approach (ICD-10-PCS; principal; 2025-07-01 09:20)
PROC: 0SG1071 Fusion of 2 or more Lumbar Vertebral Joints with Autologous Tissue Substitute, Posterior Approach, Posterior Column, Open Approach (ICD-10-PCS; 2025-07-01 09:20)
PROC: 0SG1071 Fusion of 2 or more Lumbar Vertebral Joints with Autologous Tissue Substitute, Posterior Approach, Posterior Column, Open Approach (ICD-10-PCS; CPT 27280; 2025-07-01 09:20)
PROC: 0SG1071 Fusion of 2 or more Lumbar Vertebral Joints with Autologous Tissue Substitute, Posterior Approach, Posterior Column, Open Approach (ICD-10-PCS; CPT 63005; 2025-07-01 09:20)
DX: M48.062 Spinal stenosis, lumbar region with neurogenic claudication (principal); I42.6 Alcoholic cardiomyopathy; M43.16 Spondylolisthesis, lumbar region; I50.9 Heart failure, unspecified; I11.0 Hypertensive heart disease with heart failure; K21.9 Gastro-esophageal reflux disease without esophagitis; E78.5 Hyperlipidemia, unspecified; M16.0 Bilateral primary osteoarthritis of hip; F17.210 Nicotine dependence, cigarettes, uncomplicated
CPT/HCPCS: 36415; 51702; 72100; 76000; 86850; 86900; 97116; 97161; C1713; C1734; C1776; J0690; J1100; J1580; J1885; J2250; J2405; J2704; J3010; J3260; J3373; J3490; J7030; J7120; J9999

== ENCOUNTER → 2025-07-17 10:25 | Outpatient (BNVA) | payer BC, MEDICAID, SELFPAY | PROVIDERS: PCP Family Medicine; Visit Provider Specialist | DX: M16.0 Bilateral primary osteoarthritis of hip (principal) | CPT/HCPCS: 73523 ==

== ENCOUNTER 2025-08-23 08:45 | Outpatient (CLI) | payer BC, MEDICAID, SELFPAY ==
--- NOTE | 2025-08-23 | MM_ITS ---
WS: [id number] BILATERAL SCREENING DIGITAL TOMOSYNTHESIS MAMMOGRAM WITH CAD HISTORY: ANNUAL SCREENING COMPARISON: 12/12/2023, 11/08/2023 Bilateral CC and MLO views with tomosynthesis and synthetic mammography submitted. Computer aided detection analyzed. Breast composition: The breasts are heterogeneously dense, which may obscure small masses. No suspicious masses, microcalcifications or architectural distortion. Very dense fibroglandular tissue anterior portion of each breast. Benign calcifications bilaterally. Postsurgical scar upper outer quadrant LEFT breast. MM/MM scr BI tomosynthesis [id number] IMPRESSION: BI-RADS: 2 - Benign FOLLOW UP: 1 Year Follow-up
== END 2025-08-23 08:46 | disposition home or self-care (01) ==
LOC: RAD 08:47
PROVIDERS: PCP Family Medicine; Visit Provider Family Medicine
DX: Z12.31 Encounter for screening mammogram for malignant neoplasm of breast (principal); Z78.9 Other specified health status; R92.333 Mammographic heterogeneous density, bilateral breasts; R92.323 Mammographic fibroglandular density, bilateral breasts; R92.1 Mammographic calcification found on diagnostic imaging of breast; N64.89 Other specified disorders of breast
CPT/HCPCS: 77002; 77063; 77067

== ENCOUNTER → 2025-09-24 08:14 | Outpatient (BNVA) | payer BC, MEDICAID, SELFPAY | PROVIDERS: PCP Family Medicine; Visit Provider Orthopaedic Surgery | DX: Z98.890 Other specified postprocedural states (principal); Z98.1 Arthrodesis status | CPT/HCPCS: 72100 ==

== ENCOUNTER → 2025-10-14 10:32 | Outpatient (BNVA) | payer BC, MEDICAID, SELFPAY | PROVIDERS: PCP Family Medicine; Visit Provider Specialist | DX: M16.11 Unilateral primary osteoarthritis, right hip (principal) | CPT/HCPCS: 73502 ==

== ENCOUNTER → 2025-11-04 08:54 | Outpatient (BNVA) | payer BC, MEDICAID, SELFPAY | PROVIDERS: PCP Family Medicine; Visit Provider Specialist | DX: M16.12 Unilateral primary osteoarthritis, left hip (principal) | CPT/HCPCS: 73502 ==

== ENCOUNTER → 2025-11-15 11:34 | Outpatient (BNVA) | payer BC, MEDICAID, SELFPAY | PROVIDERS: PCP Family Medicine; Visit Provider Specialist | DX: M16.12 Unilateral primary osteoarthritis, left hip (principal) | CPT/HCPCS: 77002 ==

== ENCOUNTER → 2025-11-27 11:19 | Outpatient (BNVA) | payer BC, MEDICAID, SELFPAY | PROVIDERS: PCP Family Medicine; Visit Provider Specialist | DX: Z53.9 Procedure and treatment not carried out, unspecified reason (principal) | CPT/HCPCS: 77002 ==